=== PATIENT | female | born 1995 | race Caucasian/White ===

== ENCOUNTER 2020-03-04 22:39 | Emergency (ER) | payer OTHER ==
[~2020-03-04] VITALS: Ht 167.6 cm; Wt 85.9 kg
[2020-03-04 22:42] VITALS: BP 146/86
[2020-03-04 23:33] LABS: HEMATOCRIT 42.5 % (36.0-47.0); HEMOGLOBIN 13.8 g/dl (12.0-15.5); MEAN CORPUSCULAR HEMOGLOBIN 31.5 pg (27.0-33.0); MEAN CORPUSCULAR HGB CONC 32.5 g/dl (32.0-36.5); PLATELET COUNT, AUTOMATED 411 10^3/uL (150-450); RED BLOOD COUNT 4.38 10^6/uL (4.00-5.40)
[2020-03-05 00:10] LABS: BLOOD UREA NITROGEN 9 MG/DL (7-18); CALCIUM LEVEL 9.4 MG/DL (8.5-10.1); CARBON DIOXIDE LEVEL 28 MEQ/L (21-32); CHLORIDE LEVEL 106 MEQ/L (98-107); CREATININE FOR GFR 0.83 MG/DL (0.55-1.30); GLOMERULAR FILTRATION RATE > 60.0 (>60); GLUCOSE, FASTING 102 MG/DL (70-100); HCG, SERUM QUANTITATIVE < 1.0 MIU/ML; SODIUM LEVEL 141 MEQ/L (136-145)
--- NOTE | 2020-03-05 00:36 | REPVR ---
PROCEDURE INFORMATION: Exam: XR Chest, 2 Views Exam date and time: 03/04/2020 12:31 AM Age: 24 years old Clinical indication: Other: Chest pain TECHNIQUE: Imaging protocol: XR of the chest Views: 2 views. COMPARISON: No relevant prior studies available. FINDINGS: Lungs: Degree of inflation of the lungs is normal. No evidence of pulmonary edema. No focal airspace process. No concerning parenchymal lung mass. Pleural space: No pleural effusion or pneumothorax. Heart/Mediastinum: Cardiac silhouette appears normal. No mediastinal adenopathy or hilar mass. Bones/joints: Osseous structures show no acute or concerning abnormality. IMPRESSION: No active or focal cardiopulmonary process. Electronically signed by: Ramirez Zarate On 03/05/2020 00:36:16 AM
--- NOTE | 2020-03-05 08:03 | ECGEPIP ---
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
== END 2020-03-05 00:51 | disposition home or self-care (01) ==
LOC: M ED 22:39
DX: R07.89 Other chest pain (principal); R42 Dizziness and giddiness; E03.9 Hypothyroidism, unspecified

== ENCOUNTER 2020-05-26 16:34 | Emergency (ER) | payer OTHER ==
[~2020-05-26] VITALS: Ht 167.6 cm; Wt 79.9 kg
[2020-05-26 16:35] VITALS: BP 145/85
--- OUTSIDE RECORDS SUMMARY | 2020-05-26 16:42 | CCD | Continuity of Care Document ---
Author Author Marie ANGELES Organization Unknown Address [address] [place] [address] Phone [phone] Care Team Providers Care Quality Assurance Inspector Name Role Phone Lloyd Gamboa AUTM [phone] Problems Active Problems Provider Date Memory impairment Angéliac Hughes M.D. Onset: 04/11/2020 Concussion with no loss of consciousness Troy Gallegos Onset: 04/11/2020 Social History Type Date Description Comments Sex Unknown Tobacco Use Start: Unknown Patient has never smoked Allergies, Adverse Reactions, Alerts Description No Known Drug Allergies Medications Active Medications SIG Qnty Indications Ordering Provide r Date Synthroid 137mcg Tablets once a day Angélica Hughes M.D. Immunizations Description No Information Available Vital Signs Date Vital Result Comment 04/11/2020 9:24am Respiratory Rate 12 /min Height 66 inches 5'6" Weight 187.00 lb BMI (Body Mass Index) 30.2 kg/m2 [place] Body Weight 130 lb Results Description No Information Available Procedures Date Code Description Status 04/16/2020 66001 MRI Brain W/O Contrast Completed 04/16/2020 49416 MRI Brain W/O Contrast Completed Medical Devices Description No Information Available Encounters Type Date Location Provider Dx Diagnosis Office Visit 04/11/2020 8:30a Main office - [place] Angélica ochoa M.D. 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 04/16/2020 F07.81 Postconcussional syndrome MRI 04/11/2020 S06.0x0S Concussion without loss of consc iousness, sequela Angélica Hughes M.D. 04/11/2020 F07.81 Postconcussional syndrome Angélica Hughes M.D. 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 04/11/2020 R41.82 Altered mental status, unspecifi ed Angélica Hughes M.D. Plan of Treatment Future Appointment(s):* 07/11/2020 11:30 am - Angélica Hughes M.D. at [facility] * 06/01/2020 9:45 am - EEG at [facility] Functional Status Description No Information Available Mental Status Description No Information Available Referrals Refer to Dr Reason for Referral Status Appt Date Angélica Hughes M.D. Created [address] [place] [address] [phone]
--- OUTSIDE RECORDS SUMMARY | 2020-05-26 16:43 | CCD | Continuity of Care Document ---
Author Author Marie ROSALES M.D. Organization Unknown Address [address] [place] [address] Phone [phone] Care Team Providers Care Director Sterile Processing Name Role Phone Lloyd Gamboa AUTM [phone] Problems Active Problems Provider Date Memory impairment Angélica Rosales M.D. Onset: 04/11/2020 Concussion with no loss of consciousness Troy Gallegos Onset: 04/11/2020 Social History Type Date Description Comments Sex Unknown Tobacco Use Start: Unknown Patient has never smoked Allergies, Adverse Reactions, Alerts Description No Known Drug Allergies Medications Active Medications SIG Qnty Indications Ordering Provide r Date Synthroid 137mcg Tablets once a day Angélica Rosales M.D. Immunizations Description No Information Available Vital Signs Date Vital Result Comment 04/11/2020 9:24am Respiratory Rate 12 /min Height 66 inches 5'6" Weight 187.00 lb BMI (Body Mass Index) 30.2 kg/m2 [place] Body Weight 130 lb Results Description No Information Available Procedures Description No Information Available Medical Devices Description No Information Available Encounters Description No Information Available Assessments Date Code Description Provider 04/11/2020 S06.0x0S Concussion without loss of consc iousness, sequela Angélica Rosales M.D. 04/11/2020 F07.81 Postconcussional syndrome Angélica Rosales M.D. 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 04/11/2020 R41.82 Altered mental status, unspecifi ed Angélica Rosales M.D. Plan of Treatment Future Appointment(s):* 06/01/2020 9:45 am - EEG at [facility] Functional Status Description No Information Available Mental Status Description No Information Available Referrals Description No Information Available
--- OUTSIDE RECORDS SUMMARY | 2020-05-26 16:43 | CCD | Continuity of Care Document ---
Author Author Marie CHOU Organization Unknown Address [address] [place] [address] [place] [address] Phone [phone] Care Team Providers Care Lifter Driver Name Role Phone Benny Casillas MD AUTM Unavailable [facility] AUTM [phone] Problems Description No Information Available Social History Type Date Description Comments Sex Unknown ETOH Use Denies alcohol use Tobacco Use Start: Unknown Patient has never smoked Smoking Status Reviewed: 03/22/20 Patient has never smoked Allergies, Adverse Reactions, Alerts Description No Known Drug Allergies Medications Active Medications SIG Qnty Indications Ordering Provide r Date Synthroid 137mcg Tablets take one in in the morning daily Unknown Immunizations Description No Information Available Vital Signs Date Vital Result Comment 03/22/2020 5:03pm BP Systolic 116 mmHg BP Diastolic 72 mmHg Heart Rate 78 /min Respiratory Rate 16 /min Body Temperature 97.7 F Weight 190.00 lb Height 67 inches 5'7" BMI (Body Mass Index) 29.8 kg/m2 Pain Level 0 Results Description No Information Available Procedures Description No Information Available Medical Devices Description No Information Available Encounters Type Date Location Provider Dx Diagnosis Office Visit 03/22/2020 5:15p Main Office KAYLEIGH Castaneda S5 1.811A Laceration w/o foreign body of right forearm, init encntr Assessments Date Code Description Provider 03/22/2020 S51.811A Laceration without f oreign body of right forearm, initial encounter KAYLEIGH Castaneda Plan of Treatment 03/22/2020 - KAYLEIGH Castaneda* S51.811A Laceration without foreign body of right forearm, initial encounter* Comments:* sutures removed, no complications. 10 sutures removed. recommend using ointment for continued healing. pt understood plan. Functional Status Description No Information Available Mental Status Description No Information Available Referrals Refer to Reason for Referral Status Appt Date Leobardo LOGAN, Yovany Laird M.D. Created [address] [place] [address] [phone]
--- OUTSIDE RECORDS SUMMARY | 2020-05-26 16:43 | CCD | Continuity of Care Document ---
Author Author Marie ANGELES Organization Unknown Address [address] [place] [address] Phone [phone] Care Team Providers Care Snack Bar Attendant Name Role Phone Lloyd Gamboa AUTM [phone] Problems Active Problems Provider Date Memory impairment Angélica Hughes M.D. Onset: 04/11/2020 Concussion with no [...] lb BMI (Body Mass Index) 30.2 kg/m2 [place] Body Weight 130 lb Results Description No Information Available Procedures Date Code Description Status 04/16/2020 21362 MRI Brain W/O Contrast Completed Medical Devices Description No Information Available Encounters Type Date Location Provider Dx Diagnosis Office Visit 04/11/2020 8:30a Main office - [place] Angélica ochoa M.D. 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 04/11/2020 F07.81 Postconcussional syndrome Angélica Hughes M.D. 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 04/11/2020 R41.82 Altered mental status, unspecifi ed Angélica Hughes M.D. Plan of Treatment Future Appointment(s):* 07/11/2020 11:30 am - Angélica Hughes M.D. at Main office [facility] * 06/01/2020 9:45 am - EEG at [facility] Functional Status Description No Information Available Mental Status Description No Information Available Referrals Refer to Reason for Referral Status Appt Date Angélica Hughes M.D. Created [address] [place] [address] [phone]
--- OUTSIDE RECORDS SUMMARY | 2020-05-26 16:43 | CCD | Continuity of Care Document ---
Author Author Marie ROSALES M.D. Organization Unknown Address [address] [place] [address] Phone [phone] Care Team Providers Care Temp Recruiter Name Role Phone Lloyd Gamboa AUTM [phone] Problems Active Problems Provider Date Memory impairment [...] lb BMI (Body Mass Index) 30.2 kg/m2 [place] Body Weight 130 lb Results Description No Information Available Procedures Description No Information Available Medical Devices Description No Information Available Encounters Type Date Location Provider Dx Diagnosis Office Visit 04/11/2020 8:30a Main office - [place] Angélica ochoa M.D. 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 04/11/2020 F07.81 Postconcussional syndrome Angélica Rosales M.D. 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 04/11/2020 R41.82 Altered mental status, unspecifi ed Angélica Rosales M.D. Plan of Treatment Future Appointment(s):* 07/11/2020 11:30 am - Angélica Rosales M.D. at [facility] * 06/01/2020 9:45 am - EEG at [facility] Functional Status Description No Information Available Mental Status Description No Information Available Referrals Refer to Reason for Referral Status Appt Date Angélica Rosales M.D. Created [address] [place] [address] [phone]
--- OUTSIDE RECORDS SUMMARY | 2020-05-26 16:43 | CCD | Continuity of Care Document ---
Author Author Marie CHOU MS Organization Unknown Address [address] [place] [address] Phone [phone] Care Team Providers Care Store Stocker Name Role Phone Benny Casillas MD AUTM Unavailable [facility] AUTM [phone] Problems Description No Information Available Social History [...] Available Encounters Description No Information Available Assessments Description No Information Available Plan of Treatment No Information Available Functional Status Description No Information Available Mental Status Description No Information Available Referrals Refer to Reason for Referral Status Appt Date Yovany Booth JR., M.D. [facility] [place] [address] [phone]
--- OUTSIDE RECORDS SUMMARY | 2020-05-26 16:43 | CCD ---
Author Author [facility] Organization [facility] Address Unknown Phone Unavailable Care Team Providers Care Financial Counselor Name Role Phone Campanaro, Mare Bee PA Unavailable Unavailable Campanaro, Mare Bee PA Unavailable Unavailable Campanaro, Mare Bee PA Unavailable Unavailable Campanaro, Mare Bee PA Unavailable Unavailable Campanaro, Mare Bee PA Unavailable Unavailable Campanaro, Mare Bee PA Unavailable Unavailable Campanaro, Mare Bee PA Unavailable Unavailable Campanaro, Mare Bee PA Unavailable Unavailable Campanaro, Mare Bee PA Unavailable Unavailable Campanaro, Mare Bee PA Unavailable Unavailable Campanaro, Mare Bee PA Unavailable Unavailable Campanaro, Mare Bee PA Unavailable Unavailable Campanaro, Mare Bee PA Unavailable Unavailable Campanaro, Mare Bee PA Unavailable Unavailable Campanaro, Mare Bee PA Unavailable Unavailable Campanaro, Mare Bee PA Unavailable Unavailable Campanaro, Mare Bee PA Unavailable Unavailable Campanaro, Mare Bee PA Unavailable Unavailable TURRIN, TERRI Unavailable Unavailable TURRIN, TERRI Unavailable Unavailable TURRIN, TERRI Unavailable Unavailable TURRIN, TERRI Unavailable Unavailable TONTARSKI, G SHAE PA Unavailable Unavailable TONTARSKI, G SHAE PA Unavailable Unavailable TONTARSKI, G SHAE PA Unavailable Unavailable TONTARSKI, G SHAE PA Unavailable Unavailable TONTARSKI, G SHAE PA Unavailable Unavailable TONTARSKI, G SHAE PA Unavailable Unavailable TONTARSKI, G SHAE PA Unavailable Unavailable TONTARSKI, G SHAE PA Unavailable Unavailable TONTARSKI, G SHAE PA Unavailable Unavailable TONTARSANGELLA, G SHAE PA Unavailable Unavailable TONTARSKI, G SHAE PA Unavailable Unavailable TONTARSANGELLA, G SHAE PA Unavailable Unavailable TONTARSKI, G SHAE PA Unavailable Unavailable TONTARSANGELLA, G SHAE PA Unavailable Unavailable TONTARSANGELLA, G SHAE PA Unavailable Unavailable TONTARSANGELLA, G SHAE PA Unavailable Unavailable TONTARSANGELLA, G SHAE PA Unavailable Unavailable TONTARSANGELLA, G SHAE PA Unavailable Unavailable TONTARSANGELLA, G SHAE PA Unavailable Unavailable TONTARSANGELLA, G SHAE PA Unavailable Unavailable TONTARSANGELLA, G SHAE PA Unavailable Unavailable TONTARSANGELLA, G SHAE PA Unavailable Unavailable TONTARSANGELLA, G SHAE PA Unavailable Unavailable TONTARSKI, G SHAE PA Unavailable Unavailable TONTARSANGELLA, G SHAE PA Unavailable Unavailable TONTARSANGELLA, G SHAE PA Unavailable Unavailable TONTARSANGELLA, G SHAE PA Unavailable Unavailable TONTARSANGELLA, G SHAE PA Unavailable Unavailable TONTARSKI, G SHAE PA Unavailable Unavailable TONTARSANGELLA, G SHAE PA Unavailable Unavailable TONTARSANGELLA, G SHAE PA Unavailable Unavailable TONTARSANGELLA, G SHAE PA Unavailable Unavailable TONTARSANGELLA, G SHAE PA Unavailable Unavailable TONTARSANGELLA, G SHAE PA Unavailable Unavailable TONTARSKI, G SHAE PA Unavailable Unavailable TONTARSANGELLA, G SHAE PA Unavailable Unavailable TONTARSANGELLA, G SHAE PA Unavailable Unavailable TONTARSKI, G SHAE PA Unavailable Unavailable TONTARSKI, G SHAE PA Unavailable Unavailable TONTARSKI, G SHAE PA Unavailable Unavailable TONTARSKI, G SHAE PA Unavailable Unavailable TONTARSKI, G SHAE PA Unavailable Unavailable TONTARSKI, G SHAE PA Unavailable Unavailable TONTARSKI, G SHAE PA Unavailable Unavailable TONTARSKI, G SHAE PA Unavailable Unavailable TONTARSKI, G SHAE PA Unavailable Unavailable TONTARSKI, G SHAE PA Unavailable Unavailable Micheal MURCIA MD Unavailable Unavailable TWINMicheal CORONADO MD Unavailable Unavailable Micheal MURCIA MD Unavailable Unavailable TWINMicheal CORONADO MD Unavailable Unavailable Micheal MURCIA MD Unavailable Unavailable TWINMicheal CORONADO MD Unavailable Unavailable Micheal MURCIA MD Unavailable Unavailable Micheal MURCIA MD Unavailable Unavailable Micheal MURCIA MD Unavailable Unavailable Micheal MURCIA MD Unavailable Unavailable Micheal MURCIA MD Unavailable Unavailable Micheal MURCIA MD Unavailable Unavailable Micheal MURCIA MD Unavailable Unavailable Micheal MURCIA MD Unavailable Unavailable Micheal MURCIA MD Unavailable Unavailable Micheal MURCIA MD Unavailable Unavailable Micheal MURCIA MD Unavailable Unavailable Micheal MURCIA MD Unavailable Unavailable Micheal MURCIA MD Unavailable Unavailable Micheal MURCIA MD Unavailable Unavailable Micheal MURCIA MD Unavailable Unavailable Micheal MURCIA MD Unavailable Unavailable Micheal MURCIA MD Unavailable Unavailable Denisse Hughes MD Unavailable Unavailable Denisse Hughes MD Unavailable Unavailable Denisse Hughes MD Unavailable Unavailable Denisse Hughes MD Unavailable Unavailable Denisse Hughes MD Unavailable Unavailable Denisse Hughes MD Unavailable Unavailable Denisse Hughes MD Unavailable Unavailable Denisse Hughes MD Unavailable Unavailable Denisse Hughes MD Unavailable Unavailable Denisse Hughes MD Unavailable Unavailable Denisse Hughes MD Unavailable Unavailable Denisse Hughes MD Unavailable Unavailable Denisse Hughes MD Unavailable Unavailable Denisse Hughes MD Unavailable Unavailable Denisse Hughes MD Unavailable Unavailable Denisse Hughes MD Unavailable Unavailable Denisse Hughes MD Unavailable Unavailable Denisse Hughes MD Unavailable Unavailable Denisse Hughes MD Unavailable Unavailable Denisse Hughes MD Unavailable Unavailable Denisse Hughes MD Unavailable Unavailable Denisse Hughes MD Unavailable Unavailable Denisse Hughes MD Unavailable Unavailable Denisse Hughes MD Unavailable Unavailable Denisse Hugehs MD Unavailable Unavailable Denisse Hughes MD Unavailable Unavailable Denisse Hughes MD Unavailable Unavailable Denisse Hughes MD Unavailable Unavailable Denisse Hughes MD Unavailable Unavailable Denisse Hughes MD Unavailable Unavailable Denisse Hughes MD Unavailable Unavailable Denisse Hughes MD Unavailable Unavailable Denisse Hughes MD Unavailable Unavailable Denisse Hughes MD Unavailable Unavailable Denisse Hughes MD Unavailable Unavailable Denisse Hughes MD Unavailable Unavailable Denisse Hughes MD Unavailable Unavailable Denisse Hughes MD Unavailable Unavailable Denisse Hughes MD Unavailable Unavailable Denisse Hughes MD Unavailable Unavailable Denisse Hughes MD Unavailable Unavailable Denisse Hughes MD Unavailable Unavailable Denisse Hughes MD Unavailable Unavailable Denisse Hughes MD Unavailable Unavailable Denisse Hughes MD Unavailable Unavailable Denisse Hughes MD Unavailable Unavailable Denisse Hughes MD Unavailable Unavailable Denisse Hughes MD Unavailable Unavailable Denisse Hughes MD Unavailable Unavailable Denisse Hughes MD Unavailable Unavailable Denisse Hughes MD Unavailable Unavailable Denisse Hughes MD Unavailable Unavailable Denisse Hughes MD Unavailable Unavailable Denisse Hughes MD Unavailable Unavailable Denisse Hughes MD Unavailable Unavailable Denisse Hughes MD Unavailable Unavailable Denisse Hughes MD Unavailable Unavailable Denisse Hughes MD Unavailable Unavailable Denisse Hughes MD Unavailable Unavailable Denisse Hughes MD Unavailable Unavailable Denisse Hughes MD Unavailable Unavailable Saul, O Samah MD Unavailable Unavailable Saul, O Samah MD Unavailable Unavailable Saul, O Samah MD Unavailable Unavailable Saul, O Samah MD Unavailable Unavailable Saul, O Samah MD Unavailable Unavailable Saul, O Samah MD Unavailable Unavailable Saul, O Samah MD Unavailable Unavailable Saul, O Samah MD Unavailable Unavailable Saul, O Samah MD Unavailable Unavailable Saul, O Samah MD Unavailable Unavailable Saul, O Samah MD Unavailable Unavailable Saul, O Samah MD Unavailable Unavailable Saul, O Samah MD Unavailable Unavailable Saul, O Samah MD Unavailable Unavailable Re-disclosure Warning The records that you are about to access may contain information from federally-assisted alcohol or drug abuse programs. If such information is present, then the following federally mandated warning applies: This information has been disclosed to you from records protected by federal confidentiality rules (42 CFR part 2). The federal rules prohibit you from making any further disclosure of this information unless further disclosure is expressly permitted by the written consent of the person to whom it pertains or as otherwise permitted by 42 CFR part 2. A general authorization for the release of medical or other information is NOT sufficient for this purpose. The Federal rules restrict any use of the information to criminally investigate or prosecute any alcohol or drug abuse patient.The records that you are about to access may contain highly sensitive health information, the redisclosure of which is protected by Article 27-F of the [facility] Public Health law. If you continue you may have access to information: Regarding HIV / AIDS; Provided by facilities licensed or operated by the [facility] Office of Mental Health; or Provided by the [facility] Office for People With Developmental Disabilities. If such information is present, then the following [facility] mandated warning applies: This information has been disclosed to you from confidential records which are protected by state law. State law prohibits you from making any further disclosure of this information without the specific written consent of the person to whom it pertains, or as otherwise permitted by law. Any unauthorized further disclosure in violation of state law may result in a fine or senior care sentence or both. A general authorization for the release of medical or other information is NOT sufficient authorization for further disc losure. Family History Family Member Name Family Member Gender Family Member Status Date o f Status Description Data Source(s) Unknown Unknown Problem [facility] ([facility], ) Encounters Encounter Providers Location Date Indications Data Source(s ) Outpatient Attender: Angélica Hughes MD Main office - [facility] 04/11/2020 07:30:00 AM EST [facility] ([facility]) Outpatient Attender: Bee gomez 03/22/2020 04:15:00 PM EST [facility] ([facility]) Emergency Attender: TERRI GUADALUPEConsultant: SHAE VICTOR 03/16/2020 11:46:00 AM EST - 03/16/2020 04:14:00 PM EST [facility] Patient discharged. Emergency Attender: CLAIRE MURCIA MDConsultant: SHAE VICTOR 03/04/2020 04:05:00 AM EDT - 03/04/2020 05:11:00 AM EDT [facility] Patient discharged. Medications Medication Brand Name Start Date Product Form Dose Route Admi nistrative Instructions Pharmacy Instructions Status Indications Reaction Description Data Source(s) Sulfamethoxazole 800 MG / Trimethoprim 160 MG Oral Tab let 800-160 mg SULFAMETHOXAZOLE/TRIMETHOPRIM 03/16/2020 12:00:00 AM EST tablet 14 TAKE ONE TABLET BY MOUTH TWICE A DAY FOR 7 DAYS TAKE ONE TABLET BY MOUTH TWICE A DAY FOR 7 DAYS SOLD: 03/16/2020 Marty Rivera s Insurance Providers Payer name Policy type / Coverage type Policy ID Covered democrat ID Covered democrat's relationship to arriaga Policy Arriaga Plan Information [facility] [id number] SF2 [id number] [facility] - O/P [id number] 19 [id number] ACTIVE DUTY [id number] SP [id number] U [id number] Child [id number] [employer] (HMO) Family Dependent Health Net [employer] Standard Health Maintenance Organization (HMO) MEDICAID [id number] SP [id number] REGION 1 [id number] [facility] [id number] SF2 [id number] [facility] [id number] FA [id number] U [id number] Child [id number] [facility] O [id number] P [id number] Problems, Conditions, and Diagnoses Code Display Name Description Problem Type Effective Dates Data Source(s) 53649934 Concussion with no loss of consciousness Concussion with no loss of consciousness Problem 04/11/2020 12:00:00 AM EST [facility] ([facility], ) [id number] Memory impairment Memory impairment Problem 04/11 12:00:00 AM EST [facility] ([facility], ) [id number] Unspecified place in unspeci fied non-institutional (private) residence as the place of occurrence of the external cause Unspecified place in unspecified non-institutional (private) residence as the place of occurrence of the external cause Diagnosis 03/16/2020 11:46:00 AM [facility] [id number] Contact with other sharp obj ect(s), not elsewhere classified, initial encounter Contact with other sharp object(s), not elsewhere classified, initial encounter Diagnosis 03/16/2020 11:46:00 AM [facility] Z7982 FCI (current) use of aspirin oracle adf developer (cu rrent) use of aspirin Diagnosis 03/16/2020 11:46:00 AM [facility] Z23 Encounter for immunization Encounter for immunization Diagnosis 03/16/2020 11:46:00 AM [facility] N3001 Acute cystitis with hematuria Acute cystitis with tray turia Diagnosis 03/16/2020 11:46:00 AM [facility] [id number] Laceration without foreign body of right forearm, initial encounter Laceration without foreign body of right forearm, initial encounter Diagnosis 03/16/2020 11:46:00 AM [facility] [id number] Unspecified injury of right forearm, ini tial encounter Unspecified injury of right forearm, initial encounter Diagnosis 03/16/2020 11:46: 00 AM [facility] G52893 Nicotine dependence, unspecified, uncomp licated Nicotine dependence, unspecified, uncomplicated Diagnosis 03/04/2020 04:05:00 AM EDT [facility] F1290 Cannabis use, unspecified, uncomplicated Cannabis use, unspecified, uncomplicated Diagnosis 03/04/2020 04:05:00 AM EDT [facility] M940 Chondrocostal junction syndrome [Tietze] Chondrocostal junction syndrome [Tietze] Diagnosis 03/04/2020 04:05:00 AM EDT [facility] R0789 Other chest pain Other chest pain Diagnosis 03/04/2020 04 :05:00 AM EDT [facility] Surgeries/Procedures Procedure Description Date Indications Data Source(s) MRI BRAIN BRAIN STEM W/O CONTRAST MATERIAL 04/16/2020 12:00:00 AM EST [facility] ([facility], ) MRI BRAIN BRAIN STEM W/O CONTRAST MATERIAL 04/16/2020 12:00:00 AM EST [facility] ([facility], ) Results ID Date Data Source [id number] 03/24/2020 10:51:00 [place] [address] RESPIRATORY CARE REPORT ==== ---------NAME------- NUMBER SEX AGE ADMIT DISC. XRAY# F/C AYUSH CARDOSO [id number] F 24 03/16/20 03/16/20 [id number] SB4 E/R DATE OF : 1995 M/R# [id number] #: [id number] TR-03 LOCATION: [place] [address] COMP LETE:03/16/20 14:35 [facility] [address] PHYSICIAN: ANAYELI RICHARDSON CH Name Value Range Interpretation Code Description Data Haley rce(s) Supporting Document(s) ID Date Data Source [id number] 03/17/2020 09:36:00 AM [place] [id number] PHONE: [phone] FAX: [phone] Name .................. : CAR CARDOSO Acct Number.................. : [id number] ROOM. ................. : TR-03 MR Number ................... : [id number] Stay type ............. : E/R Discharge Date......... ... : 03/16/20 Admit Date ......... : 03/16/20 Admit Phys .................... : ANAYELI PEREYRA Date of ....... : 1995 Family Phys ................... : MALCOLM Phone .................. : [phone] Age ................................ : 24 Film# .................. .:[id number] Sex ................................. : F Unsigned transcriptions are preliminary reports and do not represent a medical or legal document [facility] [place] [id number] COMPLETE:03/16/20 19:02 [facility] [address] Reason(s): Trauma/Injury RIGHT FOREARM X-RAY: INDICATION: Trauma. FINDINGS/IMPRESSION: There is no fracture or dislocation. No significant degenerative changes. Small punctate densities are noted in the lateral soft tissues of the forearm on the AP view. I do not see these on the lateral view and they may be obscured by the osseous structures versus dust particles on the radiographic cassette used for the AP view. Electronically Reviewed and Signed By Toni Ortiz M.D. , 03/17/20 09:36, [facility] Transcribe Initials: SUSIE , Transcribe Date: 03/16/20 22:17, Dictation Date: Copy for: DYLAN HALE via fax Copy for: EMERGENCY DEPT via modem Copy for: 710 MED REC DISCHARGED Page 1 of 1 Name Value Range Interpretation Code Description Data Haley rce(s) Supporting Document(s) ID Date Data Source [id number] 03/17/2020 09:36:00 AM EST [facility] [address] [place] [address] PHONE: [phone] FAX: [phone] Name .................. : CAR CARDOSO Acct Number.................. : [id number] ROOM. ................. : TR-03 Number ................... : [id number] Stay type ............. : E/R Discharge Date......... ... : 03/16/20 Admit Date ......... : 03/16/20 Admit Phys .................... : ANAYELI PEREYRA Date of ....... : 1995 Family Phys ................... : [employer] Phone .................. : [phone] Age ................................ : 24 Film# .................. .:[id number] Sex ................................. : F Unsigned transcriptions are preliminary reports and do not represent a medical or legal document CHEST PORTABLE [id number] COMPLETE:03/16/20 19:02 [facility] [address] Reason(s): psych; tachy, PORTABLE CHEST X-RAY: INDICATION: Patient jumped out of a window. Patient is tachycardic. FINDINGS: The cardiac and mediastinal silhouettes appear normal and the lungs are clear. The bones and soft tissues are normal. The upper abdomen is unremarkable. IMPRESSION: No acute disease identifiable. Electronically Reviewed and Signed By Toni Ortiz M.D. , 03/17/20 09:36, [facility] Transcribe Initials: SUSIE , Transcribe Date: 03/16/20 22:14, Dictation Date: Copy for: DYLAN HALE via fax Copy for: EMERGENCY DEPT via modem Copy for: 710 MED REC DISCHARGED Page 1 of 1 Name Value Range Interpretation Code Description Data Haley rce(s) Supporting Document(s) ID Date Data Source [id number] 03/16/2020 11:46:00 AM EST [facility] 1 OrderSheet [facility] Emergency Department [address] [place] [address] Phone #: ext- [phone] 03/16/2020 11:39 Patient: WALKER YOON Sex: F : 1995 Age: 24yWEIGHT:84.0 kg (M) HEIGHT:68 inches (S) BMI:28.2ALLERGIES: Penicillins, Tobacco, VodkaCHIEF COMPLAINT: behav changeDIAGNOSIS: Problem, Urinary tract infectious disease, Laceration - InjuryLAB ORDERSOrder Description Priority Entered Acknowledged InitialedCBC w Diff STAT 12:30 03/16/2020 12:35 Andrey Franco R.N., P.A.-C;CMP STAT 12:30 03/16/2020 12:35 Andrey Franco R.N., P.A.-C;Lipase STAT 12:30 03/16/2020 12:35 Andrey Franco R.N. P.A.-C;PT/PTT STAT 12:30 03/16/2020 12:35 Andrey Franco R.N. P.A.-C;Troponin-T STAT 12:30 03/16/2020 12:35 Andrey Franco R.N. P.A.-C;TSH STAT 12:30 03/16/2020 12:35 Andrey Franco R.N. P.A.-C;Urinalysis (Clean STAT 12:30 03/16/2020 13:30 Salvador,Catch) Andrey Zepeda R.N. P.A.-C;Urine Drug Screen STAT 12:30 03/16/2020 13:30 Andrey Franco R.N. P.A.-C;Salicylate Level STAT 12:30 03/16/2020 12:35 Andrey Franco R.N. P.A.-C;CBC wo Diff STAT 12:30 03/16/2020 12:35 Andrey FrancoN. P.A.-C;Acetaminophen STAT 12:30 03/16/2020 12:35 Salvador, Elo OrderSheet [facility] Emergency Department [address] [place] [address] Phone #: ext- [phone] 03/16/2020 11:39 Patient: WALKER YOON A cct#: [id number] Sex: F : 1995 Age: 24yLevel Andrey Zepeda R.N. P.A.-C;ETOH STAT 12:30 03/16/2020 12:35 Andrey Franco R.N. P.A.-C;Drug Screen-Urine STAT 12:30 03/16/2020 13:30 Andrey Franco R.N. P.A.-C;HCG Serum Qual STAT 12:30 03/16/2020 12:34 Andrey Franco R.N. P.A.-C;Lactic Acid STAT 12:30 03/16/2020 12:34 Andrey Franco R.N. P.A.-C;CPK STAT 12:30 03/16/2020 12:35 Andrey Franco R.N. P.A.- C;Culture, Urine STAT 15:48 03/16/2020 15:49 Salvador,(Urine, Clean Andrey Zepeda R.N.Catch) P.A.-C;DIAGNOSTIC STUDY ORDERSOrder Description Priority Entered Acknowledged InitialedChest Portable 1 STAT 12:30 03/16/2020 13:30 Salvador,View Andrey Zepeda R.N.(Oxygen?(No)) P.A.-C; Reason for Study: psych; tachy,Forearm Complete STAT 12:30 03/16/2020 13:30 Salvador,Right Andrey Zepeda R.N.(Oxygen?(No)) P.A.-C; Reason for Study: Trauma/InjuryMEDICATION/IV/DRIP/FLUID ORDERSOrder Description Priority Entered Acknowledged InitialedIV NS : Bolus 500 13:37 03/16/2020 13:43 SalvadormL, then 75 mL/hr Andrey Zepeda R.N. P.A.-C;Mhmittu-Focme-Gxetr 15:24 03/16/2020 15:32 Salvador,Pertussis IM 0.5 mL Andrey Zepeda R.N. P.A.- C;GENERAL ORDERSOrder Description Priority Entered Acknowledged Initialed 3 OrderSheet [facility] Emergency Department [address] [place] [address] Phone #: ext- [phone] 03/16/2020 11:39 Patient: WALKER YOON Sex: F : 1995 Age: 24yBlood Pressure 12:30 03/16/2020 12:32 Franco,Monitor Andrey Zepeda R.N. P.A.-C;Tire Beader Maker 12:30 03/16/2020 12:32 Salvador,(continuous) Chr istopher Dylan Zepeda R.N. P.A.-C;EKG 12:30 03/16/2020 12:32 Andrey Franco R.N. P.A.-C;NPO 12:30 03/16/2020 12:32 Andrey Franco R.N. P.A.-C;Obtain Old EKG 12:30 03/16/2020 12:32 Andrey Franco R.N. P.A.-C;Obtain Old Records 12:30 03/16/2020 12:32 Andrey FrancoN. P.A.-C;Pulse oximeter 12:30 03/16/2020 12:32 Salvador,(Continuous) Andrey Zepeda R.N. P.A.-C;Saline Lock 12:30 03/16/2020 12:32 Andrey FrancoN. P.A.-C;Vitals 12:30 03/16/2020 12:32 Andrey FrancoN. P.A.-C;Suicide 12:30 03/16/2020 12:32 Salvador,Precautions Andrey MortonN. P.A.-C;One on One 12:30 03/16/2020 12:32 Salvador,supervision Andrey MortonN. P.A.- C;Irrigate Wounds 12:30 03/16/2020 12:32 Salvador,(NS) (Blue Pads) Andrey Zepeda R.N. P.A.- C;[Electronically signed by Lilo Salgado R.N. (19:26 03/16/2020)][Elect ronically signed by Andrey Richardson P.A.-C (20:58 03/16/2020)][Electronically locked by Lilo Salgado R.N. (:03/16/2020)] Name Value Range Interpretation Code Description Data Haley rce(s) Supporting Document(s) ID Date Data Source [id number] 03/16/2020 11:46:00 AM [facility] 1 Medication Reconciliation Report [facility] Emergency Department [address] [place] [address] Phone #: ext- [phone] 03/16/2020 11:39 Patient: WALKER YOON Sex: F : 1995 Age: 24yWeight: 84.0 kgHeight/Length: 68 in.BMI: 28.2ALLERGIES: Penicillins, Tobacco, VodkaThe patient's Home Medications are listed below:CONTINUE TAKING THE FOLLOWING MEDICATIONS: Escitalopram Oxalate Oral (10 mg) 1 tablet, daily Synthroid Oral (137 mcg), dailyThe source(s) of the original Home Medication information:Not obtained.The following Medications were given to the patient in the Emergency Department:IV NS IV Fluids bolus 500 mL over 1 hour(s), then 75 mL/hr, administered: 03/16/2020 1:43:00 SHHUSHEAL-KWINE-BCVZP PERTUSSIS [IM] IM 0.5 mL, administered: 03/16/2020 3:32:00 PMThe following Medications were prescribed to the patient:Bactrim DS 800 mg- 160 mg tablet Take 1 tablet twice a day for 7 days -- Dispense 14 tablet. Refills: 0.Substitution permitted.Pharmacy - [id number] - [address], [place] [phone]. . -- Andrey Richardson P.A.-C Name Value Range Interpretation Code Description Data Haley rce(s) Supporting Document(s) ID Date Data Source [id number] 03/16/2020 11:46:00 AM [facility] 1 Medication Administration Record [facility] Emergency Department [address] [place] [address] Phone #: ext- [phone] 03/16/2020 11:39 Patient: WALKER YOON Sex: F : 1995 Age: 24yWeight: 84.0 kgHeight/Length: 68 inBMI: 28.2ALLERGIES: Penicillins, Tobacco, Vodka Date/Time Medication Administered Medication OrderedStart IV NS IV NS : Bolus 500 mL, then 7513:43 03/16/2020 Dose: IV Fluids mL/hrKatelyn Franco, R.N. Rate: 75 mL/hr---- Bolus: 500 mL over 1 hour(s)Stop Dispensed: 1000 mL bag16:08 03/16/2020 Site: #1 left Lilo Dove R.N.Given [id number]-SEDYC PERTUSSIS Kpzrjhu-Wdmiu-Bvotp Pertussis IM15:32 03/16/2020 [IM] 0.5 mLKatelyn Franco, R.NRylee Dose: 0.5 mL IM Name Value Range Interpretation Code Description Data Haley rce(s) Supporting Document(s) ID Date Data Source [id number] 03/16/2020 11:46:00 AM EST [facility] 1 General Instructions [facility] [facility] [address] [place] [address] Phone #: ext [phone] 03/16/2020 11:39 Patient: WALKER YOON Sex: F : 1995 Age: 24y Multiple superficial lacerations to the right forearm. No foreign body present. Acute urinary tract infection with cystitis and hematuria. Abnormal tests; (TSH was a little low. May need to adjust medicaiton.).INSTRUCTIONS Protect wound and keep wound area clean. Change dressing daily. Keep wounds dry. Apply bacitracin twice daily. Sutures/paul should be removed in seven days. No strenuous activity for one weeks. No dietary restrictions. Do not smoke. (Recommend to utilize OTC Motrin and Tylenol to control inflammation and pain management. Recommend to follow the instructions on the bottle and not to exceed. Recommend to utilize OTC antibiotic ointment to help control possible skin infection and help promote wound healing and care.). Warnings: Further evaluation is necessary. GENERAL WARNINGS: Return or contact your physician immediately if your condition worsens or changes unexpectedly, if not improving as expected, or if other problems arise. Your Current Medications: Your current home medications have been reviewed. CONTINUE TAKING THE FOLLOWING MEDICATIONS: Escitalopram Oxalate Oral : Tablet 10 mg, 1 tablet daily. Synthroid Oral : Tablet 137 mcg, daily. Prescription Medications: Bactrim DS 800 mg-160 mg tablet Take 1 tablet twice a day for 7 days -- Dispense 14 tablet. Refills: 0. Substitution permitted. Pharmacy - [id number] - [address] [place] [address] [phone]. . Follow- up: Return to the emergency department as needed. Follow up with your healthcare provider in about two days if not better. Call for an appointment. Understanding of the discharge instructions verbalized by patient and parent. ADDITIONAL INFORMATION 2 General Instructions [facility] Emergency Department [address] [place] [address] Phone #: [phone]- [phone] 03/16/2020 11:39 Patient: WALKER YOON Sex: F : 1995 Age: 24yL aceration: All ClosuresA laceration is a cut through the skin. This will usually require stitches (sutures) or paul if it is deep.Minor cuts may be treated with a surgical tape closure or skin glue.Home care Your healthcare provider may prescribe an antibiotic. This is to help prevent infection. Follow all instructions for taking this medicine. Take the medicine every day until it is gone or you are told to stop. You should not have any left over. The healthcare provider may prescribe medicines for pain. If no pain medicines were prescribed, you can use zvfd-hgd-iqfniuv pain medicines. Follow instructions for taking any pain medicines. (Note: If you have chronic liver or kidney disease, or ever had a stomach ulcer or gastrointestinal bleeding, talk with your doctor before using these medicines.) Follow the healthcare provider's instructions on how to care for the cut. Keep the wound clean and dry. Do not get the wound wet until you are told it is OK to do so. If the area gets wet, gently pat it dry with a clean cloth. Replace the wet bandage with a dry one. If a bandage was applied and it becomes wet or dirty, replace it. Otherwise, leave it in place for the first 24 hours. Caring for sutures or paul: Once you no longer need to keep them dry, clean the wound 3 General Instructions [facility] Emergency Department [address] [place] [address] Phone #: [phone] 03/16/2020 11:39 Patient: WALKER YOON Sex: F : 1995 Age: 24y daily. First, remove the bandage. Then wash the area gently with soap and warm water, or as directed by the healthcare provider. Use a wet cotton swab to loosen and remove any blood or crust that forms. After cleaning, apply a thin layer of antibiotic ointment if advised. Then put on a new bandage unless you are told not to. Caring for skin glue: Don't put apply liquid, ointment, or cream on the wound while the glue is in place. Avoid activities that cause heavy sweating. Protect the wound from sunlight. Do not scratch, rub, or pick at the adhesive film. Do not place tape directly over the film. The glue should peel off within 5 to 10 days. Caring for surgical tape: Keep the area dry. If it gets wet, blot it dry with a clean towel. Surgical tape usually falls off within 7 to 10 days. If it has not fallen off after 10 days, you can take it off yourself. Put mineral oil or petroleum jelly on a cotton ball and gently rub the tape until it is removed. Once you can get the wound wet, you may shower as usual but do not soak the wound in water (no tub baths or swimming) Even with proper hodan atment, a wound infection may sometimes occur. Check the wound daily for signs of infection listed below.Scalp woundsDuring the first 2 days, you may carefully rinse your hair in the shower to remove blood, glass or dirtparticles. After two days, you may shower and shampoo your hair normally. Do not soak your scalp inthe tub or go swimming until the stitches or paul have been removed. Talk with your healthcareprovider before applying any antibiotic ointment to the wound.Mouth woundsEat soft foods to reduce pain. If the cut is inside of your mouth, clean by rinsing after each meal andat bedtime with a mixture of equal parts water and hydrogen peroxide (do not swallow!). Or, you canuse a cotton swab to directly apply hydrogen peroxide onto the cut. You may also be prescribed achlorhexidine solution to rise with. Mouth wounds can be painful when eating. You may use fpojon-hcd-viktros local numbing solution for pain relief. If this is not available, you may use anynumbing solution intended for teething babies. You may apply this directly to the sores with acotton-tip swab or with your finger.Follow-up careFollow up with your healthcare provider as advised. Ask your healthcare provider how long suturesshould be left in place. Be sure to return for suture removal as directed. If dissolving stitches wereused in the mouth, these should fall out or dissolve without the need for removal. If tape closureswere used, remove them yourself when your provider recommends if they have not fallen off on their 4 General Instructions [facility] Emergency Department [address] [place] [address] Phone #: [phone]- [phone] 03/16/2020 11:39 [id number] Sex: F : 1995 Age: 24yown. If skin glue was used, the film will wear off by itself. Generally, you should keep healing woundsout of direct sunlight for the first couple of months to try to lessen scarring.When to seek medical adviceCall your healthcare provider right away if any of these occur: Signs of infection, including increasing pain in the wound, increasing wound redness or swelling, or pus or bad odor coming from the wound Fever of 100.4F (38.C) or higher, or as directed by your healthcare provider Stitches or paul come apart or fall out or surgical tape falls off before 7 days Wound edges reopen Wound changes colors Numbness around the wound after any numbing medicine should have worn off Decreased movement around the injured areaCall 911Call 911 if you can't control the wound bleeding with direct pressure. [phone] [employer]. [address] [place] [address]. All rights reserved. This information is not intended as asubstitute for professional medical care. Always follow your healthcare professional's instructions.Laceration: How to Minimize ScarringA laceration is a cut through one or more layers of the skin. Cuts heal as the edges of the cut growtogether and heal. After the cut heals, the skin may not look exactly the same. The thor left behind iscalled a scar. Scars are a natural part of the healing process. They are hard to avoid. How much youmay scar depends on the depth of the cut, its location on your body, your age, and how your skinheals. Some people tend to heal with more scarring than others. Most scars fade and become lessnoticeable over time. You can take steps to help this process along.NOTE: Please inform the staff of your last tetanus shot and if your wound was caused by a fanny ordirty object.What you can doThe tips below can help reduce scarring as your wound heals. Keep the wound clean. Unless you are told to keep the area dry, gently wash the area with 5 General Instructions [facility] Emergency Department [address] [place] [address] Phone #: [phone]- [phone] 03/16/2020 11:39 Patient: WALKER YOON Sex: F : 1995 Age: 24y mild soap and water. You don't need to use antibacterial soap. Keep the wound moist. Apply petroleum jelly to the wound to keep it moist and prevent a scab from forming. Scabs lengthen the time it takes a wound to heal. Cover the wound. Use a non-adhesive bandage or gauze pad with paper tape. Change the bandage daily or if it gets wet or dirty. Try hydrating or silicone gel sheets. These dressings keep the wound moist and may help it heal faster with less scarring. They may be useful for larger wounds, scrapes, sores, hooper, or wounds with persistent redness. Ask your healthcare provider whether you should use this product on your wound. If you have stitches (sutures), follow your healthcare provider's instructions. Care for the wound as instructed. Also, return to have stitches removed on time. If you wait, scarring might be worse. Use sunscreen. Once the wound heals, apply sunscreen to the area daily. Sun may cause the scar to be more visible and discolored. Once the wound heals, there is some evidence that miyn-iph-kujgcxd scar creams can reduce the appearance of a scar.Follow upMake a follow-up appointment as directed by our staff. If you are advised to see a specialist or youhave concerns about scarring, please contact a driver guard.When to seek medical adviceWhen to seek medical advice Call your health care provider right away if any of these occur: Shaking chills or fever above 100.4F (38C) Bleeding that soaks the dressing [place] fluid weeping from the wound Increased drainage from the wound or drainage that is yellow, yellow-green, or has a foul odor Increased swelling, pain, or redness in the skin around the wound A change in the color or size of the wound Increased fatigue 6 General Instructions [facility] Emergency Department [address] [place] [address] Phone #: [phone]- [phone] 03/16/2020 11:39 Patient: WALKER YOON Sex: F : 1995 Age: 24y Loss of appetite Sutures pulling away from the wound or pulling apart [phone] [employer]. [address] [place] [address]. All rights reserved. This information is not intended as asubstitute for professional medical care. Always follow your healthcare professional's instructions.Bladder Infection, Female (Adult)Urine is normally doesn't have any bacteria in it. But bacteria can get into the urinary tract from theskin around the rectum. Or they can travel in the blood from elsewhere in the body. Once they are inyour urinary tract, they can cause infection in the urethra (urethritis), the bladder (cystitis), or thekidneys (pyelonephritis).The most common place for an infection is in the bladder. This is called a bladder infection. This isone of the most common infections in women. Most bladder infections are easily treated. They arenot serious unless the infection spreads to the kidney.The phrases "bladder infection," "UTI," and "cystitis" are often used to describe the same thing. Butthey are not always the same. Cystitis is an inflammation of the bladder. The most common cause ofcystitis is an infection.SymptomsThe infection causes inflammation in the urethra and bladder. This causes many of the symptoms.The most common symptoms of a bladder infection are: 7 General Instructions [facility] Emergency Department [address] [place] [address] Phone #: [phone]- [phone] 03/16/2020 11:39 Patient: WALKER YOON Sex: F : 1995 Age: 24y Pain or burning when urinating Having to urinate more often than usual Urgent need to urinate Only a small amount of urine comes out Blood in urine Abdominal discomfort. This is usually in the lower abdomen above the pubic bone. Cloudy urine Strong- or bad-smelling urine Unable to urinate (urinary retention) Unable to hold urine in (urinary incontinence) Fever Loss of appetite Confusion (in older adults)CausesBladder infections are not contagious. You can't get one from someone else, from a toilet seat, orfrom sharing a bath.The most common cause of bladder infections is bacteria from the bowels. The bacteria get onto theskin around the opening of the urethra. From there, they can get into the urine and travel up to thebladder, causing inflammation and infection. This usually happens because of: Wiping improperly after urinating. Always wipe from front to back. Bowel incontinence Procedures such as having a catheter inserted Older age Not emptying your bladder. This can allow bacteria a chance to grow in your urine. Dehydration Constipation 8 General Instructions [facility] Emergency Department [address] [place] [address] Phone #: [phone]- [phone] 03/16/2020 11:39 Patient: WALKER YOON Sex: F : 1995 Age: 24y Sex Use of a diaphragm for controlTreatmentBladder infections are diagnosed by a urine test. They are treated with antibiotics and usually clear upquickly without complications. Treatment helps prevent a more serious kidney infection.MedicinesMedicines can help in the treatment of a bladder infection: Take antibiotics until they are used up, even if you feel better. It is important to finish them to make sure the infection has cleared. You can use acetaminophen or ibuprofen for pain, fever, or discomfort, unless another medicine was prescribed. If you have chronic liver or kidney disease, talk with your healthcare provider before using these medicines. Also talk with your provider if you've ever had a stomach ulcer or gastrointestinal bleeding, or are taking blood-thinner medicines. If you are given phenazopydridine to reduce burning with urination, it will cause your urine to become a bright orange color. This can stain clothing.Care and preventionT hese self-care steps can help prevent future infections: Drink plenty of fluids to prevent dehydration and flush out your bladder. Do this unless you must restrict fluids for other health reasons, or your doctor told you not to. Proper cleaning after going to the bathroom is important. Wipe from front to back after using the toilet to prevent the spread of bacteria. Urinate more often. Don't try to hold urine in for a long time. Wear loose-fitting clothes and cotton underwear. Avoid tight-fitting pants. Improve your diet and prevent constipation. Eat more fresh fruit and vegetables, and fiber, and less junk and fatty foods. Avoid sex until your symptoms are gone. Avoid caffeine, alcohol, and spicy foods. These can irritate your bladder. Urinate right after intercourse to flush out your bladder. If you use control pills and have frequent bladder infections, discuss it with your doctor. 9 General Instructions [facility] Emergency Department [address] [place] [address] Phone #: [phone]- [phone] 03/16/2020 11:39 Patient: WALKER YOON Sex: F : 1995 Age: 24yFollow-up careCall your healthcare provider if all symptoms are not gone after 3 days of treatment. This is especiallyimportant if you have repeat infections.If a culture was done, you will be told if your treatment needs to be changed. If directed, you cancall to find out the results.If X-rays were done, you will be told if the results will affect your treatment.Call [phone] if any of the following occur: Trouble breathing Hard to wake up or confusion Fainting or loss of consciousness Rapid heart rateWhen to seek medical adviceCall your healthcare provider right away if any of these occur: Fever of 100.4F (38.0C) or higher, or as directed by your healthcare provider Symptoms are not better by the third day of treatment Back or belly (abdominal) pa in that gets worse Repeated vomiting, or unable to keep medicine down Weakness or dizziness Vaginal discharge Pain, redness, or swelling in the outer vaginal area (labia) [phone] [employer]. [address] [place] [address]. All rights reserved. This information is not intended as asubstitute for professional medical care. Always follow your healthcare professional's instructions.Bandage ChangeIf the bandage becomes wet or dirty, replace it. Otherwise, leave it in place for the first 24 hours.Then once a day: Remove the bandage and wash the area with soap and water. Use a wet cotton swab to 10 General Instructions [facility] Emergency Department [address] [place] [address] Phone #: [phone]- [phone] 03/16/2020 11:39 Patient: WALKER YOON Sex: F : 1995 Age: 24y loosen and remove any blood or crust that forms on the wound. After cleaning, apply a thin layer of antibiotic ointment or cream. Put the bandage back on.You can shower as usual after the first 24 hours. If the bandage is on an arm or leg, cover it with aplastic bag rubber-banded at both ends before showering. Take care that the rubber bands are nottoo tight, cutting off circulation to the affected area.Don't take a tub bath or go swimming until the bandage is removed and the wound healed. This willtake at least 7 days.When to seek medical adviceCall your healthcare provider right away if any of these occur with your wound: Fever Redness, warmth, or swelling Pain in the wound gets worse Pus drains when you remove the bandage Red streaks surround the wound area [phone] [employer]. [address] [place] [address], [place] [address]. All rights reserved. This information is not intended as asubstitute for professional medical care. Always follow your healthcare professional's instructions.Laceration: All ClosuresA laceration is a cut through the skin. This will usually require stitches (sutures) or paul if it is deep.Minor cuts may be treated with a surgical tape closure or skin glue. 11 General Instructions [facility] Emergency Department [address] [place] [address] Phone #: ext- [phone] 03/16/2020 11:39 Patient: WALKER YONO Sex: F : 1995 Age: 24yHome care Your healthcare provider may prescribe an antibiotic. This is to help prevent infection. Follow all instructions for taking this medicine. Take the medicine every day until it is gone or you are told to stop. You should not have any left over. The healthcare provider may prescribe medicines for pain. If no pain medicines were prescribed, you can use xkvq-mux-xkeekgs pain medicines. Follow instructions for taking any pain medicines. (Note: If you have chronic liver or kidney disease, or ever had a stomach ulcer or gastrointestinal bleeding, talk with your doctor before using these medicines.) Follow the healthcare provider's instructions on how to care for the cut. Keep the wound clean and dry. Do not get the wound wet until you are told it is OK to do so. If the area gets wet, gently pat it dry with a clean cloth. Replace the wet bandage with a dry one. If a bandage was applied and it becomes wet or dirty, replace it. Otherwise, leave it in place for the first 24 hours. Caring for sutures or paul: Once you no longer need to keep them dry, clean the wound daily. First, remove the bandage. Then wash the area gently with soap and warm water, or as directed by the healthcare provider. Use a wet cotton swab to loosen and remove any blood or crust that forms. After cleaning, apply a thin layer of antibiotic ointment if advised. Then put on a new bandage unless you are told not to. Caring for skin glue: Don't put apply liquid, ointment, or cream on the wound while the glue is 12 General Instructions [facility] Emergency Department [address] [place] [address] Phone #: [phone] 03/16/2020 11:39 Patient: WALKER YOON Sex: F : 1995 Age: [address] Avoid activities that cause heavy sweating. Protect the wound from sunlight. Do not scratch, rub, or pick at the adhesive film. Do not place tape directly over the film. The glue should peel off within 5 to 10 days. Caring for surgical tape: Keep the area dry. If it gets wet, blot it dry with a clean towel. Surgical tape usually falls off within 7 to 10 days. If it has not fallen off after 10 days, you can take it off yourself. Put mineral oil or petroleum jelly on a cotton ball and gently rub the tape until it is removed. Once you can get the wound wet, you may shower as usual but do not soak the wound in water (no tub baths or swimming) Even with proper treatment, a wound infection may sometimes occur. Check the wound daily for signs of infection listed below.Scalp woundsDuring the first 2 days, you may carefully rinse your hair in the shower to remove blood, glass or dirtparticles. After two days, you may shower and shampoo your hair normally. Do not soak your scalp inthe tub or go swimming until the stitches or paul have been removed. Talk with your healthcareprovider before applying any antibiotic ointment to the wound.Mouth woundsEat soft foods to reduce pain. If the cut is inside of your mouth, clean by rinsing after each meal andat bedtime with a mixture of equal parts water and hydrogen peroxide (do not swallow!). Or, you canuse a cotton swab to directly apply hydrogen peroxide onto the cut. You may also be prescribed achlorhexidine solution to rise with. Mouth wounds can be painful when eating. You may use xmvmoz-pke-zyeffag local numbing solution for pain relief. If this is not available, you may use anynumbing solution intended for teething babies. You may apply this directly to the sores with acotton-tip swab or with your finger.Follow-up careFollow up with your healthcare provider as advised. Ask your healthcare provider how long suturesshould be left in place. Be sure to return for suture removal as directed. If dissolving stitches wereused in the mouth, these should fall out or dissolve without the need for removal. If tape closureswere used, remove them yourself when your provider recommends if they have not fallen off on theirown. If skin glue was used, the film will wear off by itself. Generally, you should keep healing woundsout of direct sunlight for the first couple of months to try to lessen scarring.When to seek medical adviceCall your healthcare provider right away if any of these occur: 13 General Instructions [facility] Emergency Department [address] [place] [address] Phone #: [phone] 03/16/2020 11:39 Patient: WALKER YOON Sex: F : 1995 Age: 24y Signs of infection, including increasing pain in the wound, increasing wound redness or swelling, or pus or bad odor coming from the wound Fever of 100.4F (38.C) or higher, or as directed by your healthcare provider Stitches or paul come apart or fall out or surgical tape falls off before 7 days Wound edges reopen Wound changes colors Numbness around the wound after any numbing medicine should have worn off Decreased movement around the injured areaCall 911Call 911 if you can't control the wound bleeding with direct pressure. 1999- 2017 [employer]. [address] [place] [address], [place] [address]. All rights reserved. This information is not intended as asubstitute for professional medical care. Always follow your healthcare professional's instructions.Extremity Laceration: Stitches, [place], or TapeA laceration is a cut through the skin. If it is deep, it may require stitches or paul to close so it canheal. Minor cuts may be treated with surgical tape closures, or skin glue.X-rays may be done if something may have entered the skin through the cut. You may also need atetanus shot if you are not up to date on this vaccine.Home care Follow the healthcare provider's instructions on how to care for the cut. Wash your hands with soap and warm water before and after caring for your wound. This is to help prevent infection. Keep the wound clean and dry. If a bandage was applied and it becomes wet or dirty, replace it. Otherwise, leave it in place for the first 24 hours, then change it once a day or as directed. If stitches or paul were used, clean the wound daily: o After removing the bandage, wash the area with soap and water. Use a wet cotton swab to loosen and remove any blood or crust that forms. o After cleaning, keep the wound clean and dry. Talk with your healthcare provider before putting any antibiotic ointment on the wound. Reapply the bandage. 14 General Instructions [facility] Emergency Department [address] [place] [address] Phone #: ext- [phone] 03/16/2020 11:39 Patient: WALKER OYON Sex: F : 1995 Age: 24y You may remove the bandage to shower as usual after the first 24 hours, but don't soak the area in water (no swimming) until the stitches or paul are removed. If surgical tape closures were used, keep the area clean and dry. If it becomes wet, blot it dry with a towel. Let the surgical tape fall off on its own. The healthcare provider may prescribe an antibiotic cream or ointment to prevent infection. He or she may also prescribe an antibiotic pill. Don't stop taking this medicine until you have finished it all or the provider tells you to stop. The provider may also prescribe medicine for pain. Follow the instructions for taking these medicines. Don't do activities that may reopen your wound.Follow-up careFollow up with your healthcare provider, or as advised. Most skin wounds heal within 10 days. But aninfection may sometimes occur even with proper treatment. Check the wound daily for the signs ofinfection listed below. Stitches and paul should be removed within 7 to14 days.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 discomfort.).Warnings: Further evaluation is necessary.GENERAL WARNINGS: Return or contact your physician immediately if your condition worsens orchanges unexpectedly, if not improving as expected, or if other problems arise.Your Current Medications: Your current home medications have been reviewed.CONTINUE TAKING THE FOLLOWING MEDICATIONS:Synthroid Oral : Tablet 137 mcg, daily.Understanding of the discharge instructions verbalized by patient. ADDITIONAL INFORMATIONChest Wall Pain: Costochondritis 2 General Instructions [facility] Emergency Department [address] [place] [address] Phone #: ext- [phone] 03/04/2020 04:01 Patient: WALKER YOON Sex: F : 1995 Age: 24yThe chest pain that you have had today is caused by costochondritis. This condition is caused by aninflammation of the cartilage joining your ribs to your breastbone. It is not caused by heart or lungproblems. Your healthcare team has made sure that the chest pain you feel is not from a lifethreatening cause of chest pain such as heart attack, collapsed lung, blood clot in the lung, tear in theaorta, or esophageal rupture. The inflammation may have been brought on by a blow to the chest,lifting heavy objects, intense exercise, or an illness that made you cough and sneeze a lot. It oftenoccurs during times of emotional stress. It can be painful, but it is not dangerous. It usually goes awayin 1 to 2 weeks. But it may happen again. Rarely, a more serious condition may cause symptomssimilar to costochondritis. That's why it's important to watch for the warning signs listed below.Home careFollow these guidelines when caring for yourself at home: If you feel that emotional stress is a cause of your condition, try to figure out the sources of that stress. It may not be obvious. Learn ways to deal with the stress in your life. This can include re gular exercise, muscle relaxation, meditation, or simply taking time out for yourself. You may use acetaminophen, ibuprofen, or naproxen to control pain, unless another pain medicine was prescribed. If you have liver or kidney disease or ever had a stomach ulcer, talk with your healthcare provider before using these medicines. You can also help ease pain by using a hot, wet compress or heating pad. Use this with or without a medicated skin cream that helps relieves pain. Do stretching exercise as advised by your provider. Take any prescribed medicines as directed. 3 General Instructions [facility] Emergency Department [address] [place] [address] Phone #: ext- [phone] 03/04/2020 04:01 Patient: WALKER YOON Sex: F : 1995 Age: 24yFollow-up careFollow up with your healthcare provider, or as advised, if you do not start to get better in the next 2days.When to seek medical adviceCall your healthcare provider right away if any of these occur: A change in the type of pain. Call if it feels different, becomes more serious, lasts longer, or spreads into your shoulder, arm, neck, jaw, or b ack. Shortness of breath or pain gets worse when you breathe Weakness, dizziness, or fainting Cough with dark-colored sputum (phlegm) or blood Abdominal pain Dark red or black stools Fever of 100.4F (38C) or higher, or as directed by your healthcare provider [id number] [employer]. [address] [place] [address]. All rights reserved. This information is not intended as asubstitute for professional medical care. Always follow your healthcare professional's instructions. You have been given the following additional information: Chest Wall Pain, Costochondritis(Electronically signed by Claire Murcia MD 03/04/2020 06:52) Name Value Range Interpretation Code Description Data Haley rce(s) Supporting Document(s) ID Date Data Source [id number] 03/04/2020 04:05:00 AM EDT [facility] 1 Clinical Report - Nurses [facility] Emergency Department [address] [place] [address] Phone #: ext- [phone] 03/04/2020 04:01 Patient: WALKER YOON Sex: F : 1995 Age: 24yTRIAGEArrived by private vehicle. Historian: patient. Accompanied by family.Acuity: LEVEL 3.Chief Complaint: (loss of hearing).Alert. No acute distress.( Patient arrives c/o intermittent loss of hearing that started today. Pt states she also felt dizzy "like heavy"and "almost passed out". Pt states during that episode she lost "some" of her hearing. Pt arrives andappears to be anxious. Pt denies any pain. Pt denies any congestion, cp, sob, n/v/d, fevers or chills.).Treatment HAND HARDENER:None. --04:12 03/04/20 Almaz Flores R.N.04:03 03/04/20. BP: 150/90. MAP: 110. HR: 99. RR: 20. O2 saturation: 100% on room air. Temp: 98.3 F.Pain level now: 0/10. --04:12 03/04/20 Almaz Flores R.N.Weight: 95.2 kg stated. Height/Length: 66 inches Per Patient. BMI: 33.9. --04:02 03/04/20 Almaz Flores R.N.MedicationsSynthroid Oral (Tablet 137 mcg), daily. --04:08 03/04/20 Almaz Flores R.N.AllergiesTobacco. --04:03/04/20 Almaz Flores R.N.Vodka. --04:09 03/04/20 Almaz Flores R.N.Penicillins. --04:03/04/20 Amlaz Flores R.N.PROBLEMS:Anxiety.Thyroid Disease. --04:10 03/04/20 Almaz Folres R.N.HistoryPAST MEDICAL HX: Immunizations: up-to-date. Last normal menstrual period- Feb 26.SOCIAL HX: Light tobacco smoker. Occasional alcohol use. History of drug use: marijuana. Thepatient was offered HIV testing but declined. Patient education was provided. The patient was offeredhepatitis C testing but declined. Patient education was provided. The patient has not traveled outside the[place].Infectious disease exposure: No infectious disease exposure. Patient is not a known carrier of tuberculosis,hepatitis, HIV, MRSA or VRE. Patient is not a known carrier of CRE. 2 Clinical Rep ort - Nurses [facility] Emergency Department [address] [place] [address] Phone #: ext- [phone] 03/04/2020 04:01 Patient: WALKER YOON Sex: F : 1995 Age: 24y SELF HARM ASSESSMENT: Self harm assessment was performed. The patient answered "no" to the question(s) "Have you recently felt down, depressed, or hopeless?", "Do you have thoughts of harming or killing yourself?", "Do you have a plan for harming or killing yourself?" and "Have you recently had thoughts about harming or killing others?". ABUSE ASSESSMENT: Abuse assessment. The patient had positive responses to the question(s) "Do you feel safe in your home?", "Are you afraid to go home?" and "Has anyone hurt you or threatened to hurt you?". Abuse denied. NUTRITIONAL RISK ASSESSMENT: The nutritional risk assessment revealed no deficiencies. FUNCTIONAL ASSESSMENT: Functional assessment: no impairments noted. LEARNING NEEDS ASSESSMENT: [facility] needs assessment revealed no barriers. FALL RISK ASSESSMENT: Fall risk assessment completed. No risk factors identified. SKIN INTEGRITY ASSESSMENT: Skin integrity risk assessment completed. No skin integrity risk identified. --04:12 03/04/20 Almaz Flores R.N. Interventions Identification band on patient. To treatment room. --04:03/04/20 Almaz Flores R.N.PHYSICAL ASSESSMENTAmbulatory to room. Patient gowned.GENERAL / NEURO / PSYCH: Alert. Oriented X 4. Appears in no acute distress. Appears anxious. (Patient states 1 episodes of dizziness where she felt "heavy.").HEENT: Pupils equal, round and reactive to light. No facial asymmetry noted. ( Patient reportsintermittent loss of hearing). Mucous membranes are pink.RESPIRATORY: Respirations not labored. Chest nontender. Breath sounds within normal limits.CVS: Normal sinus rhythm noted. Capillary refill less than 2 seconds. Pulses within normal limits.GI / : Abdomen soft and nontender and normal bowel sounds.SKIN: Skin intact. Skin is warm and dry. Normal skin turgor. --04:13 03/04/20 Almaz Flores R.N.NURSING PROGRESS NOTESReassurance given. Two patient identifiers checked. Call light placed in reach. Side rails up x 2. Bedplaced in lowest position. Brakes of bed on. --04:12 03/04/20 Almaz Flores R.N. Rounding: Pain: denies pain. Position: states comfortable and repositioned. Proximity of possessions / care items: call light within easy reach. Plug ins: assured IV pump plugged in; checked status of equipment in use; located all cords, tubes, and lines to prevent fall hazard. Set expectations: advised patient of rounding protocol timing and asked if they needed anything else at this time. The patient is calm and resting quietly. ( Look at written orders for medication given at this time.). --04:23 03/04/20 Almaz Flores R.N. Charted On Wrong Patient --05:09 03/04/20 Almaz Flores R.N. 3 Clinical Report - Nurses [facility] Emergency Department [address] [place] [address] Phone #: ext- [phone] 03/04/2020 04:01 Patient: WALKER YOON Sex: F : 1995 Age: 24y 04:22 03/04/20. BP: 102/60. MAP: 74. HR: 87. RR: 20. O2 saturation: 100% on room air. Temp: 98.2 F. Pain level now: 0/10. --04:23 03/04/20 Almaz Flores R.N. Charted on wrong patient. --05:09 03/04/20 Almaz Flores R.N. EKG time: (04:37 03/04/2020). EKG was performed by a nurse and shown to the ED physician. --04:39 03/04/20 Almaz Flores R.N.DISPOSITION / DISCHARGE No learning barriers present. Discharge instructions provided and reviewed with the patient. Reviewed warnings. Reviewed medication(s). Treatments reviewed. Reviewed referrals. Patient verbalized understanding. Written instructions provided in [facility]. The patient was discharged home and accompanied by parent. She left ambulatory and via private vehicle. Parent driving. --05:10 03/04/20 Almaz Flores R.N. 05:09 03/04/20. BP: 145/86. MAP: 105. HR: 86. RR: 20. O2 saturation: 100% on room air. Temp: 98.2 F. Pain level now: 0/10. --05:10 03/04/20 Almaz Flores R.N.Locked/Released at 03/04/2020 05:11 by Almaz Flores R.N. Name Value Range Interpretation Code Description Data Haley rce(s) Supporting Document(s) ID Date Data Source [id number] 03/04/2020 04:05:00 AM EDT [facility] 1 Clinical Report - Physicians/Mid Levels [facility] Emergency Department [address] [place] [address] Phone #: ext- [phone] 03/04/2020 04:01 Patient: WALKER YOON Sex: F : 1995 Age: 24y Arrived- By private vehicle. Historian- patient and family (mother conveyed information over the phone). Disposition decision: 04:41 03/04/2020.HISTORY OF PRESENT ILLNESS Chief Complaint: rash. This started just prior to arrival and is now gone. At its maximum, severity described as mild. When seen in the E.D., it was gone. Modifying factors. Not worsened by anything. Not relieved by anything. No loss of appetite, weight loss, headache, visual disturbance or fatigue. No muscle aches or weakness. Denies sleep problem. No decreased urine output. (Patient arrives c/o intermittent loss of hearing that started today. Pt states she also felt dizzy "like heavy" and "almost passed out". Pt states during that episode she lost "some" of her hearing. Pt arrives and appears to be anxious. Pt denies any pain. Pt denies any congestion, cp, sob, n/v/d, fevers or chills. she stated that these symptoms started after she spoked marijuana. she states that she does not believe her symptoms are from the marijuana. Pt also complains of having a lump to her right face and fullness to her buttock area that have all been there for years. she states she has an appt to get her blood drawn on saturday and to see the doctor.). Similar symptoms previously. None. Recent medical care: Not recently seen/assessed.REVIEW OF SYSTEMSNo sore throat or throat, sinus drainage or nasal congestion or congestion. No cough, difficulty breathing,chest pain or abdominal pain or pain. No nausea, vomiting, diarrhea or black stools or stools. No bloodystools or stools, difficulty with urination or urination or abnormal bleeding. No vaginal discharge, skin rashor rash or back pain or pain. No calf pain or pain, headache or blackouts. No double vision or vision,chills, fever or decreased vision. No eye irritation, photophobia, ear drainage or pain or hearing loss. Notinnitus, epistaxis, runny nose, sinus pain or mouth sores. No toothache, cough, difficulty breathing, pedaledema or palpitations. No constipation, diarrhea, nausea, vomiting or urinary frequency. No hematuria,headache, seizure, easy bruising or swelling. No difficulty with ambulation. The patient has had chestpain.PAST HISTORYSee nurses notes. Problems: Anxiety. Thyroid Disease. Medications: 2 Clinical Report - Physicians/Mid Levels [facility] Emergency Department [address] [place] [address] Phone #: ext- [phone] 03/04/2020 04:01 Patient: WALKER YOON Sex: F : 1995 Age: 24y Synthroid Oral (Tablet 137 mcg), daily. Allergies: Penicillins. Tobacco. Vodka.SOCIAL HISTORYSmoker- current status unknown. History of drug use: marijuana.ADDITIONAL NOTESThe nursing notes have been reviewed.PHYSICAL EXAMVital Signs: 03/04/2020 04:22 BP: 102/60. MAP: 74. HR: 87. RR: 20. O2 saturation: 100% on room air.Temp: 98.2 F. Pain level now: 0/10.03/04/2020 04:03 BP: 150/90. MAP: 110. HR: 99. RR: 20. O2 saturation: 100% on room air. Temp: 98.3 F.Pain level now: 0/10. Have been reviewed and appear to be correct. Blood pressure normal. Meanarterial pressure- normal. Heart rate normal. Respiratory rate normal. Temperature normal. Oxygensaturation normal.Appearance: Alert. No acute distress.Eyes: Pupils equal, round and reactive to light. Eyes normal inspection.ENT: Ears normal. Nose normal. Pharynx normal.Neck: Normal inspection. Neck supple.CVS: Normal heart rate and rhythm. Heart sounds normal. Pulses normal.Respiratory: No respiratory distress. Painless inspiration. Breath sounds normal.Abdomen: No visible injury. Soft and nontender. Bowel sounds n ormal.Back: Normal inspection. No CVA tenderness.Skin: Skin warm and dry. Normal skin color. No rash. Normal skin turgor. (small soft tissue massapprox 1cm in diameter anterior to right ear, non-tender, no redness, fullness to her sacrum appear to befatty tissue).Extremities: Extremities exhibit normal ROM. No lower extremity edema.Neuro: Oriented X 3. No motor deficit. No sensory deficit. (reproducible chest wall pain. pt was ableto walk approx 50 with without any difficulty. she was able to bend over and reach for the ceiling.).PROGRESS AND PROCEDURESCourse of Care: Pt presents to the ED for evaluation of her weakness after she smoked marijuana. sheappeared to be very anxious. she denies being . she goes to sleep late night around 3am andwakes up around 5:30am. she smokes marijuana and is not the most healthy. She has reproduciblechest wall pain. she is concerned about cancer. she showed me a small fatty lesion to her right face. Iencouraged her to f/u with pcp for further evaluation. it has been there for years hence no emergentissue. she also showed me fatty tissue to her sacrum. no evidence of infection, no neuro deficits. Iencouraged her to f/u with pcp. her chest pain is reproducible. her ekg was nl. I encouraged her to livea healthy lifestyle, go to bed early, stop smoking marijuana and ear healthy. I further encouraged her tokeep her appt for labs scheduled on saturday and to keep her f/u appt with her doctor. mother was on the 3 Clinical Report - Physicians/Mid Levels [facility] Emergency Department [address] [place] [address], [facility] [address] Phone #: ext- [phone] 03/04/2020 04:01 Patient: WALKER YOON Sex: F : 1995 Age: 24y phone as I gave these instructions. pt was discharged. Patient/family counseled. Disposition: Discharged. Condition: good and stable.CLINICAL IMPRESSION Costochondritis Marijuana use.INSTRUCTIONS (Please follow up with your primary care physician. Keep your appt for labs on saturday. please try to avoid any drug use. discuss with your doctor the lesion to your face and the fullness to your face. you may take tylenol or motrin for any chest wall discomfort.). Warnings: Further evaluation is necessary. GENERAL WARNINGS: Return or contact your physician immediately if your condition worsens or changes unexpectedly, if not improving as expected, or if other problems arise. Your Current Medications: Your current home medications have been reviewed. CONTINUE TAKING THE FOLLOWING MEDICATIONS: Synthroid Oral : Tablet 137 mcg, daily. Understanding of the discharge instructions verbalized by patient.(Electronically signed by Claire Murcia MD 03/04/2020 06:52) Name Value Range Interpretation Code Description Data Haley rce(s) Supporting Document(s) Procedure Social History Code Duration Value Status Description Data Source(s ) Smoking 03/22/2020 12:00:00 AM EST Patient has never smoked co mpleted Patient has never smoked [facility] ([facility]) Vital Signs ID Date Data Source UNK Name Value Range Interpretation Code Description Data Source(s) [place] body weight 130 [lb_av] 130 [lb_av] [facility] T ([facility]) Body mass index (BMI) [Ratio] 30.2 kg/m2 30.2 k g/m2 [facility] ([facility]) Body weight 187.00 [lb_av] 187.00 [lb_av] [facility] ([facility]) Body height 66 [in_i] 66 [in_i] [facility] ([facility]) 5'6" Respiratory rate 12 /min 12 /min [facility] ( [facility]) Body mass index (BMI) [Ratio] 29.8 kg/m2 29.8 k g/m2 [facility] ([facility]) Body height 67 [in_i] 67 [in_i] [facility] ([facility]) 5'7" Body weight 190.00 [lb_av] 190.00 [lb_av] [facility] ([facility]) Body temperature 97.7 [degF] 97.7 [degF] [facility] ([facility]) Respiratory rate 16 /min 16 /min [facility] ( [facility]) Heart rate 78 /min 78 /min [facility] ([facility], [facility]) Diastolic blood pressure 72 mm[Hg] 72 mm[Hg] [facility] ([place] [facility], [facility]) Systolic blood pressure 116 mm[Hg] 116 mm[Hg] [facility] ([place] [facility], [facility])
[2020-05-26] MEDS ORDERED: SYNT150T PO (17:47)
--- OUTSIDE RECORDS SUMMARY | 2020-05-26 18:25 | CCD ---
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 Supporting Document(s) CULTURE URINE [facility] spital _CULTURE URINE_$$[id number]$$[id number]$$[id number]$$[id number]$$[id number]$$[id number]$$[id number]$$457163$$[id number]$$ 621964$$673350$$214740$$641992$$641613$$778189$$668029$$219103$$381312$$161768$$ 364504$$795519$$116112$$679162$$082074$$432380$$401884$$[id number] -- Continued on next page --Patient: CAR CARDOSO Order: [id number] Page 2Culture: CULTURE URINE Status: Final ==== -- Continued on next page --Patient: CAR CARDOSO Order: [id number] Page 2Culture: CULTURE URINE Status: Prelim =====$$[id number] DATE/TIME: 03/20/2020 12:05Culture: CULTURE URINE Status: FinalUrine Culture,Comprehensive: [id number] urogenital flora10,000-25,000 colony forming units per mL Previous result entered on 03/19/2020 06:17 ET Specimen has been received and testing has been initiated.P1 Test performed by: [employer] Estelle GEORGE #: [id number] [address] [place] [id number] [facility] [id number] Director : Ming Garcia MD NPI #:[employer] : 03/19/20.0711.XMT.SENT REF 03/20/20.1213.XMT.SENT REF ID Date Data Source [id number] 03/16/2020 03:32:[address] [facility] Name Value Range Interpretation Code Description Data Haley rce(s) Supporting Document(s) DRUG SCREEN URINE [facility] URINE DRUG SCREEN Amphetamine [Presence] in Urine by Screen method NEGATIVE NORMAL: N EGATIVE [facility] BARBITURATES NEGATIVE NORMAL: NEGATIVE [facility] BENZO NEGATIVE NORMAL: NEGATIVE [facility] COCAINE NEGATIVE NORMAL: NEGATIVE [facility] Tetrahydrocannabinol [Presence] in Urine PRESUMP POS NORMAL: NEGATIVE [facility] OPIATES NEGATIVE NORMAL: NEGATIVE [facility] Phencyclidine [Presence] in Urine by Screen method NEGATIVE NOR MAL: NEGATIVE [facility] \\BLDo\\URINE DRUG SCR EEN INTERPRETATION\\BLDx\\ THE CUTOFFF LEVELS FOR DETECTION ARE FOLLOWS: AMPHETAMINES 1000 ng/ml BARBITUARATES 200 ng/ml BENZODIAZEPINES 100 ng/ml THC 50 ng/ml PHENCYCLIDINE 25 ng/ml OPIATES 300 ng/ml COCAINE 300 ng/ml ALL POSITIVES ARE CONSIDERED PRESUMPTIVE POSITIVE CONFIRMATION WILL BE PERFORMED AT PHYSICIAN REQUEST. ID Date Data Source [id number] 03/16/2020 03:12:00 PM EST [facility] Name Value Range Interpretation Code Description Data Haley rce(s) Supporting Document(s) [facility] COL[facility] yellow NORMAL: Yellow [facility] CLARITY cloudy NORMAL: Clear [facility] Specific gravity of Urine by Test strip 1.015 1.001 - 1.030 [facility] pH 8 5 - 9 [facility] al Glucose [Mass/volume] in Urine by Test strip NORM NORMAL: Negat omar [facility] Bilirubin.total [Presence] in Urine by Test strip NEG NORMAL: Negative [facility] Ketones [Presence] in Urine by Test strip 5 NORMAL: Negative [facility] Protein [Mass/volume] in Urine by Test strip 100 NORMAL: Negat omar [facility] Nitrite [Presence] in Urine by Test strip NEG NORMAL: Negative [facility] BLOOD 10 NORMAL: Negative [facility] Leukocyte esterase [Presence] in Urine by Test strip 25 CLAIRE L: Negative [facility] Urobilinogen [Mass/volume] in Urine by Test strip 1 less cristine n 1.0 mg/dL [facility] MICROSCOPIC See Below [facility] ital WBC 0 - 1 NORMAL: NONE SEEN [facility] Erythrocytes [#/volume] in Urine by Test strip 0 - 1 NORMAL: NON E SEEN [facility] EPITHELIAL FEW NORMAL: NONE SEEN [facility] Bacteria [Presence] in Urine sediment by Light microscopy Tr joão NORMAL: NONE SEEN [facility] Mucus [Presence] in Urine sediment by Light microscopy 2+ NOR MAL: NONE SEEN A [facility] Amorphous sediment [Presence] in Urine sediment by Light leatha roscopy 2+ NORMAL: NONE SEEN [facility] Casts [#/area] in Urine sediment by Microscopy low power field See Be low [facility] Coarse Granular Casts [#/area] in Urine sediment by Mi croscopy low power field 1-3 NORMAL: None Seen A [facility] Crystals [type] in Urine sediment by Light microscopy See Below [facility] CALCIUM OX 2+ NORMAL: NONE SEEN A [facility] ID Date Data Source [id number] 03/16/2020 01:59:00 PM [facility] Name Value Range Interpretation Code Description Data Haley rce(s) Supporting Document(s) Thyrotropin [Units/volume] in Serum or Plasma by Detec tion limit <= 0.05 mIU/L 0.14 uIU/mL 0.47 - 5.01 L [facility] ID Date Data Source [id number] 03/16/2020 01:22:00 PM [facility] Value Range Interpretation Code Description Data Haley rce(s) Supporting Document(s) TROPONIN T <0.01 NG/ML 0.00 - 0.10 [facility] ospital TROPONIN T0.1 ng/ml Recommended as the c linical threshold value forTroponin T. ID Date Data Source [id number] 03/16/2020 01:22:00 PM [facility] Name Value Range Interpretation Code Description Data Haley rce(s) Supporting Document(s) Creatine kinase [Enzymatic activity/volume] in Serum or Plasma 1 02 U/L 30 - 170 [facility] ID Date Data Source [id number] 03/16/2020 01:22:00 PM [facility] Name Value Range Interpretation Code Description Data Haley rce(s) Supporting Document(s) Ethanol [Moles/volume] in Blood <10.0 MG/DL [facility] ALCOHOL % 0.00 % 0.00 - 0.01 [facility] ital *FOR MEDICAL PURPOSES ONLY * ID Date Data Source [id number] 03/16/2020 01:22:00 PM [facility] Name Value Range Interpretation Code Description Data Haley rce(s) Supporting Document(s) Acetaminophen [Presence] in Urine <5.0 UG/ML 0.0 - 30.0 [facility] ID Date Data Source [id number] 03/16/2020 01:22:[address] [facility] Name Value Range Interpretation Code Description Data Haley rce(s) Supporting Document(s) SALICYLATE <0.3 mg/dL 2.0 - 20.0 L [facility] pital ID Date Data Source [id number] 03/16/2020 01:22:00 PM [facility] Name Value Range Interpretation Code Description Data Haley rce(s) Supporting Document(s) Lipase [Enzymatic activity/volume] in Serum or Plasma 22 U/L 13 - 60 [facility] ID Date Data Source [id number] 03/16/2020 01:21:00 PM [facility] Name Value Range Interpretation Code Description Data Haley rce(s) Supporting Document(s) COMPREHENSIVE METABOLIC PANEL [facility] COMPREHENSIVE METABOLIC PANEL Sodium [Moles/volume] in Serum or Plasma 140 mEq/L 134 - 153 [facility] Potassium [Moles/volume] in Serum or Plasma 4.0 mEq/L 3.6 - 5.0 [facility] Chloride [Moles/volume] in Serum or Plasma 106 mEq/L 98 - 107 [facility] Carbon dioxide, total [Moles/volume] in Serum or Plasma 26 MEQ/L 22 - 30 [facility] Glucose [Mass/volume] in Serum or Plasma 129 MG/DL 65 - 110 H [facility] BUN 7 MG/DL 7 - 21 [facility] Creatinine [Mass/volume] in Serum or Plasma 0.8 MG/DL 0.7 - 1.5 [facility] BUN/CREAT 9 8 - 27 [facility] Protein [Mass/volume] in Serum or Plasma 7.1 G/DL 6.3 - 8.2 [facility] Albumin [Mass/volume] in Serum or Plasma 4.3 G/DL 3.9 - 5.0 [facility] Globulin [Mass/volume] in Serum by calculation 2.8 GM/DL 2.4 - 3.2 [facility] A/G RATIO 1.5 0.8 - 2.0 [facility] Calcium [Mass/volume] in Serum or Plasma 10.0 MG/DL 8.4 - 10.2 [facility] Bilirubin.total [Mass/volume] in Serum or Plasma <0.7 MG/DL 0.2 - 1.3 [facility] Alkaline phosphatase [Enzymatic activity/volume] in Serum or Plasma 109 U/L 38 - 126 [facility] Aspartate aminotransferase [Enzymatic activity/volume] in Serum or Plasma 16 U/L 5 - 40 [facility] Alanine aminotransferase [Enzymatic activity/volume] in Seru m or Plasma 20 U/L 7 - 56 [facility] Anion gap 3 in Serum or Plasma 8.0 mmol/L 8.0 - 16.0 [facility] AGE 24 yrs [facility] al NON-AA GFR >60 mL/min [facility] ital AFR AMER GFR >60 mL/min [facility] spital Male GFR In terprentation [...] >32 mL/min Normal ID Date Data Source [id number] 03/16/2020 01:19:00 PM EST [facility] Name Value Range Interpretation Code Description Data Haley rce(s) Supporting Document(s) CBC W/AUTOMATED DIFF [facility] COMPLETE BLOOD COUNT Leukocytes [#/volume] in Blood by Automated count 13.0 10^3/uL 4.2 - 11.0 H [facility] Erythrocytes [#/volume] in Blood by Automated count 4.27 10^6/uL 4. 20 - 5.40 [facility] Hemoglobin [Mass/volume] in Blood 14.0 g/dL 12.0 - 16.0 [facility] Hematocrit [Volume Fraction] of Blood by Automated count 41.2 % 3 7.0 - 47.0 [facility] Erythrocyte mean corpuscular volume [Entitic volume] by Auto mated count 96.5 fL 81.0 - 101 [facility] Erythrocyte mean corpuscular hemoglobin [Entitic mass] by Automated count 32.8 pg 27.0 - 34.0 [facility] Erythrocyte mean corpuscular hemoglobin concentration [Mass/volume] by Automated count 34.0 g/dL 31.0 - 36.0 [facility] Erythrocyte distribution width [Ratio] by Automated count 13.2 % 11.5 - 14.5 [facility] Platelets [#/volume] in Blood by Automated count 329 10^3/uL 150 - 45 0 [facility] Platelet mean volume [Entitic volume] in Blood by Automated count 10.0 fL 7.4 - 10.4 [facility] Neutrophils/100 leukocytes in Blood by Automated count 82.9 % 37. 0 - 80.0 H [facility] Lymphocytes/100 leukocytes in Blood by Manual count 7.5 % 25.0 - 40.0 L [facility] Monocytes/100 leukocytes in Blood by Automated count 8.4 % 3.0 - 8.0 H [facility] Eosinophils/100 leukocytes in Blood by Automated count 0.1 % 0.0 - 7.0 [facility] 0.6 %IG 0.5 % 0.0 - 0.0 H [facility] al %NRBC 0.0 % 0.0 - 0.0 [facility] al Neutrophils [#/volume] in Blood by Automated count 10.79 10^3/uL 2. 00 - 6.90 H [facility] Lymphocytes [#/volume] in Blood by Automated count 0.98 10^3/uL 0.60 - 3.40 [facility] Monocytes [#/volume] in Blood by Automated count 1.09 10^3/uL 0.00 - 0.90 H [facility] Eosinophils [#/volume] in Blood by Automated count 0.01 10^3/uL 0.00 - 0.70 [facility] Basophils [#/volume] in Blood by Automated count 0.08 10^3/uL 0.00 - 0.20 [facility] #IG 0.06 10^3/uL 0.00 - 0.10 [facility] ospital #NRBC 0.00 10^3/uL 0.00 - 0.00 [facility] o[facility]ital MANUAL DIFF SEE BELOW [facility] ital Segmented neutrophils/100 leukocytes in Blood by Manual count 81 % 37 - 80 H [facility] %LYMPH 9 % 25 - 40 L [facility] %MONO 9 % 3 - 8 H [facility] al 1 RBC MORPH NOT INDICATED [facility] spital ID Date Data Source [id number] 03/16/2020 01:17:00 PM EST [facility] Name Value Range Interpretation Code Description Data Haley rce(s) Supporting Document(s) HCG SERUM QUAL NEGATIVE NORMAL: NEGATIVE [facility] HCG SERUM QL REENTER NEGATIVE NORMAL: NEGATIVE [facility] { KIT LOT # [id number] ){ KIT EXP DATE 02.08.21 ){ PROCEDURAL CONTROL VALID ) ID Date Data Source [id number] 03/16/2020 01:16:00 PM [facility] Name Value Range Interpretation Code Description Data Haley rce(s) Supporting Document(s) Prothrombin time (PT) 14.5 SECONDS 11.0 - 15.5 [facility] INR in Platelet poor plasma by Coagulation assay 1.12 0.93 - 1. 23 [facility] aPTT in Blood by Coagulation assay 22.9 SECONDS 24.8 - 36.7 L [facility] \\BLDo\\INR INTERPRETATION\\BLDx\\ Therapeutic range for Coumadin and related oral anticoagulants. - International Normalized Ratio (INR): 2.0 - 3.0 for Venous Thrombosis, Pulmonary Embolus, Tissue heart valves, Acute FL Atrial Fibrillation, Valvular heart disease and recurrent Systemic Embolism. - International Normalized Ratio (INR): 2.5 - 3.5 for Mechanical Prosthetic valve. ID Date Data Source [id number] 03/16/2020 01:03:00 PM EST [facility] Name Value Range Interpretation Code Description Data Haley rce(s) Supporting Document(s) Lactate [Moles/volume] in Serum or Plasma 2.1 MMOL/L 0.2 - 2.2 [facility] ID Date Data Source [id number] 03/04/2020 07:43:00 [place] [address] RESPIRATORY CARE REPORT ==== ---------NAME------- NUMBER SEX AGE ADMIT DISC. XRAY# F/C AYUSH CARDOSO [id number] 24 03/04/20 03/04/20 [id number] E/R DATE OF : 1995 M/R# [id number] #: [id number] TR-05 LOCATION: EKG 49534 COMPLETE:03/04/20 0 7:27 [place] [id number] PHYSICIAN: KATHY POLK Name Value Range Interpretation Code Description Data Haley rce(s) Supporting Document(s) ID Date Data Source [id number] 03/04/2020 04:05:00 AM EDT [facility] 1 OrderSheet [facility] Emergency Department [address] [place] [address] Phone #: ext- [phone] 03/04/2020 04:01 Patient: [...] rce(s) Supporting Document(s) ID Date Data Source [id number] 03/04/2020 04:05:00 AM EDT [facility] 1 Medication Reconciliation Report [facility] Emergency Department [address] [place] [address] Phone #: ext- [phone] 03/04/2020 04:01 Patient: [...] rce(s) Supporting Document(s) ID Date Data Source [id number] 03/04/2020 04:05:00 AM EDT [facility] 1 Medication Administration Record [facility] Emergency Department [address] [place] [address] Phone #: ext- [phone] 03/04/2020 04:01 Patient: WALKER YOON Sex: F : 1995 Age: 24yWeight: 95.2 kgHeight/Length: 66 inBMI: 33.9ALLERGIES: Penicillins, Vodka, TobaccoDate/Time Medication Administered Medication Ordered Name Value Range Interpretation Code Description Data Haley rce(s) Supporting Document(s) ID Date Data Source [id number] 03/04/2020 04:05:00 AM EDT [facility] 1 General Instructions [facility] Emergency Department [address] [place] [address] Phone #: ext- [phone] 03/04/2020 04:01 Patient: [...] INFORMATIONChest Wall Pain: Costochondritis 2 General Instructions [facility] Emergency Department [address] [place] [address] Phone #: ext- [phone] 03/04/2020 04:01 Patient: [...] prescribed medicines as directed. 3 General Instructions [facility] Emergency Department [address] [place] [address] Phone #: ext- [phone] 03/04/2020 04:01 Patient: [...] or as directed by your healthcare provider [phone] [employer]. [address] [place] [address]. All rights reserved. This information is not intended as asubstitute for professional medical care. Always follow your healthcare professional's instructions. You have been given the following additional information: Chest Wall Pain, Costochondritis(Electronically signed by Claire Murcia MD 03/04/2020 06:52) Name Value Range Interpretation Code Description Data Haley rce(s) Supporting Document(s) ID Date Data Source [id number] 03/04/2020 04:05:00 AM EDT [facility] 1 Clinical Report - Nurses [facility] Emergency Department [address] [place] [address] Phone #: ext- [phone] 03/04/2020 04:01 Patient: [...] congestion, cp, sob, n/v/d, fevers or chills.).Treatment INFANTRY OPERATIONS SPECIALIST:None. --04:12 03/04/20 Almaz Flores R.N.04:03 03/04/20. BP: [...] R.N.Vodka. --04:09 03/04/20 Almaz Flores R.N.Penicillins. --04:03/04/20 Almaz Flores R.N.PROBLEMS:Anxiety.Thyroid Disease. --04:10 03/04/20 Almaz Flores R.N.HistoryPAST MEDICAL HX: Immunizations: up-to-date. Last normal [...] CRE. 2 Clinical Rep ort - Nurses [facility] [address] [place] [address] Phone #: ext- [phone] 03/04/2020 04:01 Patient: [...] no impairments noted. LEARNING NEEDS ASSESSMENT: [facility] needs assessment revealed no barriers. FALL [...] Flores R.N. 3 Clinical Report - Nurses [facility] Department [address] [place] [address] Phone #: ext- [phone] 03/04/2020 04:01 Patient: [...] Patient verbalized understanding. Written instructions provided in Kittitian. The patient was discharged home and accompanied [...] rce(s) Supporting Document(s) ID Date Data Source [id number] 03/04/2020 04:05:00 AM EDT [facility] 1 [facility] [address] [place] [address] Phone #: ext- [phone] 03/04/2020 04:01 Patient: [...] Medications: 2 Clinical Report - [facility] [address] [place] [address] Phone #: ext- [phone] 03/04/2020 04:01 Patient: [...] the 3 Clinical Report - [facility] Emergency Department [address] [place] [address], [facility] [address] Phone #: ext- [phone] 03/04/2020 04:01 Patient: [...] co mpleted Patient has never smoked [facility] ([facility]) Vital Signs ID Date Data Source UNK Name Value Range Interpretation Code Description Data Source(s) [place] body weight 130 [lb_av] 130 [lb_av] [facility] T ([facility]) Body mass index (BMI) [Ratio] 30.2 kg/m2 30.2 k g/m2 [facility] ([facility]) Body weight 187.00 [lb_av] 187.00 [lb_av] [facility] ([facility]) Body height 66 [in_i] 66 [in_i] [facility] ([facility]) 5'6" Respiratory rate 12 /min 12 /min [facility] ( [facility]) Body mass index (BMI) [Ratio] 29.8 kg/m2 29.8 k g/m2 [facility] ([facility]) Body height 67 [in_i] 67 [in_i] [facility] ([facility]) 5'7" Body weight 190.00 [lb_av] 190.00 [lb_av] [facility] T ([facility]) Body temperature 97.7 [degF] 97.7 [degF] [facility] ([facility]) Respiratory rate 16 /min 16 /min [facility] ( [facility]) Heart rate 78 /min 78 /min [facility] ([facility]) Diastolic blood pressure 72 mm[Hg] 72 mm[Hg] [facility] ([facility]) Systolic blood pressure 116 mm[Hg] 116 mm[Hg] M JUAN ALBERTO ([facility])
[2020-05-26 21:10] LABS: AMPHETAMINES LEVEL URINE NEGATIVE (NEGATIVE); BARBITURATES URINE NEGATIVE (NEGATIVE); BENZODIAZEPINES URINE NEGATIVE (NEGATIVE); CANNABINOIDS URINE POSITIVE (NEGATIVE); COCAINE METABOLITE URINE NEGATIVE (NEGATIVE); METHADONE URINE NEGATIVE (NEGATIVE); OPIATES URINE NEGATIVE (NEGATIVE); PHENCYCLIDINE URINE NEGATIVE (NEGATIVE)
== END 2020-05-26 22:04 | disposition home or self-care (01) ==
LOC: M ED 16:34
DX: Z60.9 Problem related to social environment, unspecified (principal); Z79.899 Other long term (current) drug therapy

== ENCOUNTER 2020-09-28 16:09 | Inpatient (IN) | payer OTHER ==
[~2020-09-28] VITALS: Ht 167.6 cm; Wt 77.6 kg
[~2020-09-28 16:09] MED LIST: SYNT150T PO
[2020-09-28] MEDS ORDERED: HALOPERIDOL 5MG/ML VIAL (J1630 PER 1) As Ordered ONE (19:26)
[2020-09-28] MEDS ORDERED: LORazepam 2 MG/ML VIAL As Ordered ONE (19:27)
[2020-09-28] MEDS ORDERED: LORazepam 2 MG/ML VIAL IM ONE (19:30)
[2020-09-28] MEDS ORDERED: HALOPERIDOL 5MG/ML VIAL (J1630 PER 1) IM ONE (19:30)
[2020-09-28 19:51] LABS: HEMATOCRIT 46.3 % (36.0-47.0); HEMOGLOBIN 14.7 g/dl (12.0-15.5); MEAN CORPUSCULAR HEMOGLOBIN 32.7 pg (27.0-33.0); MEAN CORPUSCULAR HGB CONC 31.7 g/dl (32.0-36.5); MEAN CORPUSCULAR VOLUME 103.1 fl (80.0-96.0); PLATELET COUNT, AUTOMATED 340 10^3/uL (150-450); RED BLOOD COUNT 4.49 10^6/uL (4.00-5.40); WHITE BLOOD COUNT 16.9 10^3/uL (4.0-10.0)
[2020-09-28 20:16] LABS: HCG, SERUM QUALITATIVE POSITIVE (NEGATIVE)
[2020-09-28 20:33] LABS: ACETAMINOPHEN LEVEL < 2.0 UG/ML (10.0-30.0); ALBUMIN 4.1 GM/DL (3.2-5.2); ALT/SGPT 21 U/L (12-78); BILIRUBIN,DIRECT 0.1 MG/DL (0.0-0.2); BILIRUBIN,TOTAL 0.3 MG/DL (0.2-1.0); BLOOD UREA NITROGEN 12 MG/DL (7-18); CALCIUM LEVEL 9.5 MG/DL (8.5-10.1); CARBON DIOXIDE LEVEL 18 MEQ/L (21-32); CHLORIDE LEVEL 105 MEQ/L (98-107); CREATININE FOR GFR 1.06 MG/DL (0.55-1.30); ETHYL ALCOHOL (ETHANOL) < 0.003 % (0.000-0.010); GLOMERULAR FILTRATION RATE > 60.0 (>60); GLUCOSE, FASTING 107 MG/DL (70-100); POTASSIUM SERUM 3.6 MEQ/L (3.5-5.1); SALICYLATE LEVEL < 1.7 MG/DL (5.0-30.0); SODIUM LEVEL 140 MEQ/L (136-145); TOTAL PROTEIN 8.2 GM/DL (6.4-8.2)
[2020-09-28 20:44] LABS: AMPHETAMINES LEVEL URINE NEGATIVE (NEGATIVE); BARBITURATES URINE NEGATIVE (NEGATIVE); BENZODIAZEPINES URINE NEGATIVE (NEGATIVE); CANNABINOIDS URINE NEGATIVE (NEGATIVE); COCAINE METABOLITE URINE NEGATIVE (NEGATIVE); METHADONE URINE NEGATIVE (NEGATIVE); OPIATES URINE NEGATIVE (NEGATIVE); PHENCYCLIDINE URINE NEGATIVE (NEGATIVE)
--- NOTE | 2020-09-28 21:35 | REPVR ---
PROCEDURE INFORMATION: Exam: CT Head Without Contrast Exam date and time: 09/28/2020 9:18 PM Age: 24 years old Clinical indication: Other: AMS TECHNIQUE: Imaging protocol: Computed tomography of the head without contrast. Radiation optimization: All CT scans at this facility use at least one of these dose optimization techniques: automated exposure control; mA and/or kV adjustment per patient size (includes targeted exams where dose is matched to clinical indication); or iterative reconstruction. COMPARISON: Thyroid, ST head+neck US 03/09/2016 5:03 PM FINDINGS: Brain: Normal. No hemorrhage. Unremarkable white matter. No mass effect. Cerebral ventricles: No ventriculomegaly. Paranasal sinuses: Visualized sinuses are unremarkable. No fluid levels. Mastoid air cells: Visualized mastoid air cells are well aerated. Bones/joints: Unremarkable. No acute fracture. Soft tissues: Unremarkable. IMPRESSION: No acute intracranial abnormality. Electronically signed by: Wali Moran On 09/28/2020 21:34:54 PM
[2020-09-28 21:51] LABS: HCG, SERUM QUANTITATIVE 63172 MIU/ML
--- NOTE | 2020-09-28 23:55 | REPVR ---
PROCEDURE INFORMATION: Exam: US First Trimester, Transabdominal Exam date and time: 09/28/2020 11:06 PM Age: 24 years old Clinical indication: Screening exam; Routine US, uterus; Additional info: Preg unknown dates eval for iup TECHNIQUE: Imaging protocol: Real-time transabdominal obstetrical ultrasound of the maternal pelvis and a first trimester , less than 14 weeks 0 days, with image documentation. COMPARISON: No relevant prior studies available. FINDINGS: Gestation: Single live intrauterine gestation. Embryonic/ heart rate: cardiac activity is detected at 165 bpm. Placenta: Unremarkable. No subchorionic bleed. Amniotic fluid: Amniotic fluid is normal for gestational age. BIOMETRY: Gestational age (AUA): Estimated gestational age is 8 weeks and 1 day. MATERNAL: Uterus: Unremarkable. Cervix: Unremarkable. Right adnexa: Right ovary is poorly evaluated, no gross abnormality to the degree visualized. Left adnexa: Left ovary is poorly evaluated, no gross acute abnormality to the degree visualized. Intraperitoneal space: No intraperitoneal free fluid. IMPRESSION: Single live intrauterine gestation measuring 8 weeks and 1 day. Electronically signed by: Charanjit Moscoso On 09/28/2020 23:55:09 PM
[2020-09-29] MEDS ORDERED: SYNT150T PO (06:33)
[2020-09-29] MEDS: LEVOTHYROXINE 150MCG TABLET (0.15MG) PO SCH ×2 (08:23→08:38)
[2020-09-29] MEDS ORDERED: ACETAMINOPHEN TAB 650MG DOSE (2X325MG) PO PRN (14:25)
[2020-09-29] MEDS ORDERED: MOM 30ML SUSPENSION UDC PO PRN (14:25)
[2020-09-29] MEDS ORDERED: MAALOX 30 ML SUSP *UDC PO PRN (14:25)
[2020-09-29] MEDS ORDERED: traZODone 50 MG TAB PO PRN (14:25)
[2020-09-29] MEDS ORDERED: OLANZapine ORAL DISINTEGRATING TAB 5MG PO PRN (14:25)
[2020-09-29] MEDS ORDERED: LEVOTHYROXINE 150MCG TABLET (0.15MG) PO ONE (15:05)
[2020-09-29 15:53] LABS: RSV AMPLIFICATION NEGATIVE (NEGATIVE)
[2020-09-29 17:23] VITALS: BP 129/64
[2020-09-30] MEDS ORDERED: UNRESOLVED CLARIFICATION ENTRY XX SCH (00:01)
[2020-09-30 07:01] VITALS: BP 115/67
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
[2020-09-30] MEDS ORDERED: OLANZapine ORAL DISINTEGRATING TAB 5MG PO PRN (13:45)
[2020-09-30 16:34] VITALS: BP 136/76
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
[2020-09-30] MEDS: OLANZapine 2.5MG TABLET PO SCH (20:51)
[2020-10-01] MEDS: LEVOTHYROXINE 150MCG TABLET (0.15MG) PO SCH (05:55)
[2020-10-01 06:21] VITALS: BP 133/63
[2020-10-01] MEDS: OLANZapine 2.5MG TABLET PO SCH ×2 (09:00→20:44)
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
[2020-10-01 16:20] VITALS: BP 123/68
[2020-10-02] MEDS: LEVOTHYROXINE 150MCG TABLET (0.15MG) PO SCH (05:53)
[2020-10-02 06:33] VITALS: BP 116/58
[2020-10-02] MEDS: OLANZapine 2.5MG TABLET PO SCH ×2 (09:00→21:00)
[2020-10-02 16:31] VITALS: BP 127/90
[2020-10-03] MEDS: LEVOTHYROXINE 150MCG TABLET (0.15MG) PO SCH (05:53)
[2020-10-03 06:39] VITALS: BP 111/56
[2020-10-03] MEDS: OLANZapine 2.5MG TABLET PO SCH ×2 (09:00→20:22)
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
[2020-10-03 19:28] VITALS: BP 139/60
[2020-10-04] MEDS: LEVOTHYROXINE 150MCG TABLET (0.15MG) PO SCH (05:38)
[2020-10-04 06:33] VITALS: BP 111/55
[2020-10-04] MEDS: OLANZapine 2.5MG TABLET PO SCH ×2 (09:00→20:28)
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
[2020-10-04 18:13] VITALS: BP 150/71
[2020-10-05] MEDS: LEVOTHYROXINE 150MCG TABLET (0.15MG) PO SCH (05:41)
[2020-10-05 06:00] VITALS: BP 117/60
[2020-10-05] MEDS: PRENATAL VITAMINS CHEWABLE TABLET PO SCH (09:00)
[2020-10-05] MEDS: OLANZapine 2.5MG TABLET PO SCH ×2 (09:00→21:00)
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
[2020-10-05 16:33] VITALS: BP 117/58
[2020-10-06] MEDS: LEVOTHYROXINE 150MCG TABLET (0.15MG) PO SCH (06:00)
[2020-10-06 07:26] VITALS: BP 112/54
[2020-10-06] MEDS: OLANZapine 2.5MG TABLET PO SCH ×2 (09:00→21:00)
[2020-10-06] MEDS: PRENATAL VITAMINS CHEWABLE TABLET PO SCH (09:00)
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
[2020-10-06 16:15] VITALS: BP 122/69
[2020-10-07] MEDS: LEVOTHYROXINE 150MCG TABLET (0.15MG) PO SCH (05:51)
[2020-10-07 06:17] VITALS: BP 104/56
[2020-10-07] MEDS: PRENATAL VITAMINS CHEWABLE TABLET PO SCH (09:00)
[2020-10-07] MEDS: OLANZapine 2.5MG TABLET PO SCH ×2 (09:00→20:06)
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
[2020-10-07 21:50] VITALS: BP 130/73
[2020-10-08] MEDS: LEVOTHYROXINE 150MCG TABLET (0.15MG) PO SCH (05:32)
[2020-10-08 06:43] VITALS: BP 110/54
[2020-10-08] MEDS: PRENATAL VITAMINS CHEWABLE TABLET PO SCH (08:20)
[2020-10-08] MEDS: OLANZapine 2.5MG TABLET PO SCH ×2 (08:20→20:07)
[2020-10-08 17:38] VITALS: BP 144/77
[2020-10-09] MEDS: LEVOTHYROXINE 150MCG TABLET (0.15MG) PO SCH (05:56)
[2020-10-09 06:00] VITALS: BP 114/60
[2020-10-09] MEDS: OLANZapine 2.5MG TABLET PO SCH ×2 (08:58→21:00)
[2020-10-09] MEDS: PRENATAL VITAMINS CHEWABLE TABLET PO SCH (08:58)
[2020-10-09 18:08] VITALS: BP 124/64
[2020-10-10] MEDS: LEVOTHYROXINE 150MCG TABLET (0.15MG) PO SCH (05:58)
[2020-10-10 06:30] VITALS: BP 125/63
[2020-10-10] MEDS: PRENATAL VITAMINS CHEWABLE TABLET PO SCH (08:19)
[2020-10-10] MEDS: OLANZapine 2.5MG TABLET PO SCH ×2 (08:19→21:00)
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
[2020-10-10 16:11] VITALS: BP 117/70
[2020-10-11] MEDS: LEVOTHYROXINE 150MCG TABLET (0.15MG) PO SCH (06:00)
[2020-10-11 07:15] VITALS: BP 114/66
[2020-10-11] MEDS: OLANZapine 2.5MG TABLET PO SCH ×2 (08:26→21:00)
[2020-10-11] MEDS: PRENATAL VITAMINS CHEWABLE TABLET PO SCH (08:26)
[2020-10-11 16:14] VITALS: BP 118/67
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
[2020-10-11] MEDS ORDERED: PRENCHW PO (16:55)
[2020-10-12] MEDS: LEVOTHYROXINE 150MCG TABLET (0.15MG) PO SCH (05:51)
[2020-10-12 06:51] VITALS: BP 126/64
[2020-10-12] MEDS: OLANZapine 2.5MG TABLET PO SCH (08:15)
[2020-10-12] MEDS: PRENATAL VITAMINS CHEWABLE TABLET PO SCH (08:15)
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
== END 2020-10-12 13:30 | disposition home or self-care (01) | DRG 833 ==
LOC: M ED 16:09 → M ED INP 09-29 14:23 → M PSY 09-29 17:16
PROVIDERS: ADMIT Psychiatry & Neurology Psychiatry; ATTEND Psychiatry & Neurology Psychiatry
DX: O99.341 Other mental disorders complicating pregnancy, first trimester (principal); F29 Unspecified psychosis not due to a substance or known physiological condition; O99.331 Smoking (tobacco) complicating pregnancy, first trimester; F17.290 Nicotine dependence, other tobacco product, uncomplicated; Z3A.08 8 weeks gestation of pregnancy; Z87.820 Personal history of traumatic brain injury; Z20.822 Contact with and (suspected) exposure to COVID-19; Z79.890 Hormone replacement therapy; Z91.14 Patient's other noncompliance with medication regimen

== ENCOUNTER → 2021-01-18 | Outpatient (REF) | payer OTHER ==
[~2021-01-18] MED LIST changes: +PRENCHW PO
[2021-01-18 18:05] LABS: HEMATOCRIT 36.6 % (36.0-47.0); HEMOGLOBIN 12.3 g/dl (12.0-15.5); MEAN CORPUSCULAR HEMOGLOBIN 34.2 pg (27.0-33.0); MEAN CORPUSCULAR HGB CONC 33.6 g/dl (32.0-36.5); MEAN CORPUSCULAR VOLUME 101.7 fl (80.0-96.0); PLATELET COUNT, AUTOMATED 248 10^3/uL (150-450); WHITE BLOOD COUNT 10.4 10^3/uL (4.0-10.0)
[2021-01-18 19:09] LABS: HCG, SERUM QUANTITATIVE 7599 MIU/ML; HEPATITIS B SURFACE ANTIGEN NEGATIVE (NEGATIVE)
[2021-01-18 19:25] LABS: HIV 1&2 SCREEN CENTAUR NEGATIVE (NEGATIVE)
== END ==
LOC: M LAB REF 17:18
PROVIDERS: ATTEND Obstetrics & Gynecology
DX: O36.80X0 Pregnancy with inconclusive fetal viability, not applicable or unspecified (principal); Z32.01 Encounter for pregnancy test, result positive; Z3A.00 Weeks of gestation of pregnancy not specified

== ENCOUNTER → 2021-02-22 | Outpatient (CLI) | payer OTHER ==
[2021-02-22 14:15] LABS: HEMOGLOBIN 11.8 g/dl (12.0-15.5); MEAN CORPUSCULAR HEMOGLOBIN 33.1 pg (27.0-33.0); MEAN CORPUSCULAR HGB CONC 33.7 g/dl (32.0-36.5); PLATELET COUNT, AUTOMATED 272 10^3/uL (150-450); RED BLOOD COUNT 3.57 10^6/uL (4.00-5.40); WHITE BLOOD COUNT 12.3 10^3/uL (4.0-10.0)
[2021-02-22 14:48] LABS: FREE T4 1.03 NG/DL (0.76-1.46); THYROID STIMULATING HORMONE 1.6 uIU/ML (0.358-3.740)
== END ==
LOC: M LAB 11:26
PROVIDERS: ATTEND Advanced Practice Midwife
DX: Z34.03 Encounter for supervision of normal first pregnancy, third trimester (principal); Z36.89 Encounter for other specified antenatal screening

== ENCOUNTER → 2021-03-19 | Outpatient (CLI) | payer OTHER ==
[2021-03-19 16:23] LABS: HEMATOCRIT 35.2 % (36.0-47.0); HEMOGLOBIN 11.9 g/dl (12.0-15.5); MEAN CORPUSCULAR HGB CONC 33.8 g/dl (32.0-36.5); MEAN CORPUSCULAR VOLUME 94.6 fl (80.0-96.0); PLATELET COUNT, AUTOMATED 262 10^3/uL (150-450); RED BLOOD COUNT 3.72 10^6/uL (4.00-5.40); WHITE BLOOD COUNT 13.5 10^3/uL (4.0-10.0)
[2021-03-19 16:54] LABS: ALT/SGPT 24 U/L (12-78); BILIRUBIN,TOTAL 0.1 MG/DL (0.2-1.0); CREATININE FOR GFR 0.66 MG/DL (0.55-1.30); GLOMERULAR FILTRATION RATE > 60.0 (>60); LDH LACTATE DEHYDROGENASE 215 U/L (84-246); URIC ACID 3.7 MG/DL (2.6-6.0)
[2021-03-19 19:25] LABS: CREATININE 24 HOUR, URINE 681.4 MG/24HR (600-1800); CREATININE, URINE 41.3 MG/DL; TOTAL PROTEIN 24 HOUR URINE 123.7 MG/24HR (50-150); URINE TOTAL PROTEIN 7.5 MG/DL (0-12)
== END ==
LOC: M LAB 15:59
PROVIDERS: ATTEND Advanced Practice Midwife
DX: Z34.03 Encounter for supervision of normal first pregnancy, third trimester (principal); Z36.89 Encounter for other specified antenatal screening

== ENCOUNTER → 2021-03-29 | Outpatient (REF) | payer OTHER | LOC: M LAB REF 12:12 | PROVIDERS: ATTEND Advanced Practice Midwife | DX: Z34.03 Encounter for supervision of normal first pregnancy, third trimester (principal) ==

== ENCOUNTER 2021-04-20 05:51 | Outpatient (CLI) | payer OTHER ==
[~2021-04-20] VITALS: Ht 170.2 cm; Wt 107.2 kg
[2021-04-20 06:33] VITALS: BP 137/88
[2021-04-20 08:02] VITALS: BP 181/113
[2021-04-20 08:19] VITALS: BP 135/68
[2021-04-20 09:07] VITALS: BP 134/77
[2021-04-20 09:16] VITALS: BP 129/67
== END 2021-04-20 09:54 | disposition home or self-care (01) ==
LOC: M LDO 05:51
PROVIDERS: ATTEND Advanced Practice Midwife
DX: O26.899 Other specified pregnancy related conditions, unspecified trimester (principal); N89.8 Other specified noninflammatory disorders of vagina; Z3A.00 Weeks of gestation of pregnancy not specified

== ENCOUNTER 2021-04-20 11:30 | Inpatient (IN) | payer OTHER ==
[~2021-04-20] VITALS: Ht 170.2 cm; Wt 106.5 kg
[2021-04-20] VITALS (37 sets, daily range): BP systolic 114–181; BP diastolic 56–96
[2021-04-20] MEDS ORDERED: LACTATED RINGER'S 1000 ML IV STA (11:36)
[2021-04-20] MEDS ORDERED: TRANEXAMIC ACID INJection 1,000 MG in NS 100 ML IV PRN (11:40)
[2021-04-20] MEDS ORDERED: CARBOPROST TROMETHAMINE 250 MCG/ML AMP IM PRN (11:40)
[2021-04-20] MEDS ORDERED: METHYLERGONOVINE MALEATE 0.2 MG/ML VIAL (J2210) IM PRN (11:40)
[2021-04-20 12:53] LABS: HEMATOCRIT 32.7 % (36.0-47.0); HEMOGLOBIN 10.8 g/dl (12.0-15.5); MEAN CORPUSCULAR HEMOGLOBIN 30.7 pg (27.0-33.0); MEAN CORPUSCULAR VOLUME 92.9 fl (80.0-96.0); PLATELET COUNT, AUTOMATED 237 10^3/uL (150-450); RED BLOOD COUNT 3.52 10^6/uL (4.00-5.40)
[2021-04-20] MEDS ORDERED: HOME MED LIST COMPLETE! XX SCH (13:45)
[2021-04-20] MEDS ORDERED: FENTANYL 2MCG/ML ROPIVACAINE 0.2% IN 0.9% NACL 100ML IVBAG As Ordered ONE (13:55)
[2021-04-20] MEDS ORDERED: NALOXONE INJ 0.4MG/1ML VIAL (J2310 PER 1MG) IV PRN (14:05)
[2021-04-20] MEDS ORDERED: ePHEDrine SULFATE 25 MG/5 ML(5MG/ML) SYRINGE IV PRN (14:05)
[2021-04-20] MEDS ORDERED: REFRIGERATOR IV KEYS XX PRN (14:05)
[2021-04-20] MEDS ORDERED: EPIDURAL COMMENT XX SCH (14:05)
[2021-04-20] MEDS ORDERED: LACTATED RINGER'S 1000 ML IV PRN (14:05)
[2021-04-20] MEDS ORDERED: EPIDURAL/PCA KEYS XX PRN (14:05)
[2021-04-20] MEDS ORDERED: diphenhydrAMINE 50MG/ML VIAL (J1200) IV PRN (14:05)
[2021-04-20] MEDS ORDERED: ONDANSETRON 4MG/2ML VIAL IV PRN (14:05)
[2021-04-20] MEDS ORDERED: FENTANYL/ROPIVACAINE/NACL BAG 100 ML EPIDURAL SCH (14:05)
[2021-04-20] MEDS ORDERED: OXYTOCIN DRIP 30 UNITS in IV 1 EA IV PRN ×4 (16:25)
[2021-04-20] MEDS ORDERED: OXYTOCIN DRIP 30 UNITS in IV 1 EA IV SCH (17:00)
[2021-04-20] MEDS ORDERED: RHOGAM 300 MCG (1500 IU) INJ (J2790) IM SCH (18:30)
[2021-04-20] MEDS ORDERED: METHYLERGONOVINE MALEATE 0.2 MG TAB PO PRN (18:30)
[2021-04-20] MEDS ORDERED: DOCUSATE SODIUM 100MG CAPSULE PO PRN (18:30)
[2021-04-20] MEDS ORDERED: MEASLES,MUMPS,RUBELLA VACCINE INJ (MMR-II) (90707) SC SCH (18:30)
[2021-04-20] MEDS ORDERED: ACETAMINOPHEN 500 MG TAB PO PRN (18:30)
[2021-04-20] MEDS ORDERED: DIBUCAINE 1% OINTMENT 30GM TOP PRN (18:30)
[2021-04-21] MEDS: IBUPROFEN 600MG TAB PO PRN ×2 (02:04→15:03)
[2021-04-21] MEDS: LEVOTHYROXINE 150MCG TABLET (0.15MG) PO SCH (06:26)
[2021-04-21 06:37] VITALS: BP 134/75
[2021-04-21] MEDS: PRENATAL VITAMINS CHEWABLE TABLET PO SCH (08:43)
[2021-04-21 18:00] VITALS: BP 143/85
[2021-04-22] MEDS: IBUPROFEN 600MG TAB PO PRN ×2 (01:50→21:26)
[2021-04-22] MEDS: LEVOTHYROXINE 150MCG TABLET (0.15MG) PO SCH (05:34)
[2021-04-22 06:00] VITALS: BP 144/74
[2021-04-22] MEDS: PRENATAL VITAMINS CHEWABLE TABLET PO SCH (09:30)
[2021-04-22 11:48] VITALS: BP 156/64
[2021-04-22 12:28] LABS: HEMATOCRIT 34.4 % (36.0-47.0); HEMOGLOBIN 10.9 g/dl (12.0-15.5); MEAN CORPUSCULAR HEMOGLOBIN 30.1 pg (27.0-33.0); MEAN CORPUSCULAR HGB CONC 31.7 g/dl (32.0-36.5); PLATELET COUNT, AUTOMATED 258 10^3/uL (150-450); RED BLOOD COUNT 3.62 10^6/uL (4.00-5.40); WHITE BLOOD COUNT 14.4 10^3/uL (4.0-10.0)
[2021-04-22 12:44] LABS: CREATININE,RANDOM URINE 71.9 MG/DL; TOTAL PROTEIN,RANDOM URINE 20.4 MG/DL (0.0-12.0)
[2021-04-22 12:50] LABS: ALBUMIN 2.3 GM/DL (3.2-5.2); ALT/SGPT 17 U/L (12-78); BILIRUBIN,TOTAL 0.1 MG/DL (0.2-1.0); BLOOD UREA NITROGEN 10 MG/DL (7-18); CALCIUM LEVEL 8.7 MG/DL (8.5-10.1); CARBON DIOXIDE LEVEL 27 MEQ/L (21-32); CHLORIDE LEVEL 111 MEQ/L (98-107); CREATININE FOR GFR 0.58 MG/DL (0.55-1.30); GLOMERULAR FILTRATION RATE > 60.0 (>60); GLUCOSE, FASTING 96 MG/DL (70-100); LDH LACTATE DEHYDROGENASE 189 U/L (84-246); POTASSIUM SERUM 4.6 MEQ/L (3.5-5.1); SODIUM LEVEL 143 MEQ/L (136-145); TOTAL PROTEIN 5.7 GM/DL (6.4-8.2); URIC ACID 4.3 MG/DL (2.6-6.0)
[2021-04-22 17:57] VITALS: BP 137/72
[2021-04-23 06:00] VITALS: BP 136/80
[2021-04-23] MEDS: LEVOTHYROXINE 150MCG TABLET (0.15MG) PO SCH (06:00)
[2021-04-23] MEDS: PRENATAL VITAMINS CHEWABLE TABLET PO SCH (09:50)
[2021-04-23 10:36] VITALS: BP 139/85
== END 2021-04-23 14:55 | disposition home or self-care (01) | DRG 560 ==
LOC: M LDI 11:30 → M OBS 21:51
PROVIDERS: ADMIT Obstetrics & Gynecology; ATTEND Obstetrics & Gynecology
PROC: 10E0XZZ Delivery of Products of Conception, External Approach (ICD-10-PCS; principal; 2021-04-20)
PROC: 0HQ9XZZ Repair Perineum Skin, External Approach (ICD-10-PCS; 2021-04-20)
DX: O99.284 Endocrine, nutritional and metabolic diseases complicating childbirth (principal); E03.9 Hypothyroidism, unspecified; Z3A.38 38 weeks gestation of pregnancy; Z37.0 Single live birth; O70.0 First degree perineal laceration during delivery; O13.5 Gestational [pregnancy-induced] hypertension without significant proteinuria, complicating the puerperium

== ENCOUNTER 2021-04-29 07:05 | Emergency (ER) | payer OTHER ==
[~2021-04-29] VITALS: Ht 167.6 cm; Wt 99.8 kg
[2021-04-29] MEDS ORDERED: NS 1,000 ML IV ONE (07:30)
[2021-04-29] MEDS ORDERED: ACETAMINOPHEN 500 MG TAB PO ONE (07:30)
[2021-04-29 08:19] LABS: BASO # 0.1 10^3/uL (0.0-0.2); BASO % 0.4 % (0.0-1.0); EOS # 0.1 10^3/uL (0.0-0.5); EOS % 1.1 % (0.0-3.0); HEMATOCRIT 40.4 % (36.0-47.0); LYMPH # 0.4 10^3/uL (1.5-5.0); LYMPH % 3.1 % (24.0-44.0); MEAN CORPUSCULAR HGB CONC 32.2 g/dl (32.0-36.5); MEAN CORPUSCULAR VOLUME 93.3 fl (80.0-96.0); MONO # 0.7 10^3/uL (0.0-0.8); NEUTROPHILS # 10.1 10^3/uL (1.5-8.5); NEUTROPHILS % 88.6 % (36.0-66.0); PLATELET COUNT, AUTOMATED 426 10^3/uL (150-450); RED BLOOD COUNT 4.33 10^6/uL (4.00-5.40); WHITE BLOOD COUNT 11.4 10^3/uL (4.0-10.0)
[2021-04-29 08:29] LABS: RSV AMPLIFICATION NEGATIVE (NEGATIVE)
[2021-04-29 08:38] LABS: ALBUMIN 2.9 GM/DL (3.2-5.2); ALT/SGPT 33 U/L (12-78); BILIRUBIN,DIRECT < 0.1 MG/DL (0.0-0.2); BILIRUBIN,TOTAL 0.2 MG/DL (0.2-1.0); BLOOD UREA NITROGEN 19 MG/DL (7-18); CARBON DIOXIDE LEVEL 24 MEQ/L (21-32); CHLORIDE LEVEL 112 MEQ/L (98-107); CREATININE FOR GFR 0.74 MG/DL (0.55-1.30); GLOMERULAR FILTRATION RATE > 60.0 (>60); GLUCOSE, FASTING 119 MG/DL (70-100); LIPASE 72 U/L (73-393); POTASSIUM SERUM 4.3 MEQ/L (3.5-5.1); SODIUM LEVEL 143 MEQ/L (136-145); TOTAL PROTEIN 6.6 GM/DL (6.4-8.2)
[2021-04-29] MEDS ORDERED: ISOVUE-370 76% 100ML VIAL As Ordered ONE (08:42)
[2021-04-29 09:18] VITALS: BP 127/71
== END 2021-04-29 09:25 | disposition home or self-care (01) ==
LOC: M ED 07:05
DX: R50.9 Fever, unspecified (principal); R10.9 Unspecified abdominal pain; E03.9 Hypothyroidism, unspecified; Z79.890 Hormone replacement therapy
CPT/HCPCS: 74177; 80048; 80076; 83690; 85025; 87631; 96360; 99284; Q9967

== ENCOUNTER → 2022-12-11 | Outpatient (CLI) | payer OTHER ==
[2022-12-11 14:14] LABS: ALBUMIN 4.1 G/DL (3.2-5.2); ALKALINE PHOSPHATASE 129 U/L (46-116); ALT/SGPT 218 U/L (7.0-40); AST/SGOT 94 U/L (<34); BILIRUBIN,TOTAL 0.6 MG/DL (0.3-1.2); BLOOD UREA NITROGEN 10 MG/DL (9-23); CALCIUM LEVEL 10.3 MG/DL (8.5-10.1); CARBON DIOXIDE LEVEL 31 MMOL/L (20-31); CHLORIDE LEVEL 100 MMOL/L (98-107); CHOLESTEROL LEVEL 175 MG/DL (<200); CHOLESTEROL RISK RATIO 4.83 (<5); GLOMERULAR FILTRATION RATE > 60.0 (>60); GLUCOSE, FASTING 96 MG/DL (60-100); HDL CHOLESTEROL 36.2 MG/DL (>40); LDL CHOLESTEROL 102.8 MG/DL (<100); NON-HDL-C 138.8 MG/DL; POTASSIUM SERUM 4.9 MMOL/L (3.5-5.1); SODIUM LEVEL 137 MMOL/L (136-145); TOTAL PROTEIN 7.8 G/DL (5.7-8.2); TRIGLYCERIDES LEVEL 180 MG/DL (<150)
== END ==
LOC: M LAB 12:41
PROVIDERS: ATTEND Nurse Practitioner Adult Health
DX: E03.9 Hypothyroidism, unspecified (principal); F41.9 Anxiety disorder, unspecified

== ENCOUNTER → 2022-12-20 | Outpatient (CLI) | payer OTHER ==
[2022-12-20 13:58] LABS: HEPATITIS B CORE ANTIBODY IGM NEGATIVE (NEGATIVE); HEPATITIS C VIRUS ABY INDEX 0.12 INDEX (<0.8)
== END ==
LOC: M RAD 12:15
PROVIDERS: ATTEND Nurse Practitioner Adult Health
DX: R94.5 Abnormal results of liver function studies (principal); K76.0 Fatty (change of) liver, not elsewhere classified

== ENCOUNTER → 2024-03-20 | Outpatient (CLI) | payer OTHER | LOC: M RAD 11:13 | DX: K76.0 Fatty (change of) liver, not elsewhere classified (principal) ==

== ENCOUNTER → 2025-03-27 | Outpatient (CLI) | payer OTHER ==
[2025-03-27 14:44] LABS: PLATELET COUNT, AUTOMATED 324 10^3/uL (150-450)
[2025-03-27 15:00] LABS: ESTIMATED AVERAGE GLUCOSE 171.0 MG/DL (60-110)
[2025-03-27 15:06] LABS: ALT/SGPT 156 U/L (7.0-40); AST/SGOT 57 U/L (<34); CALCIUM LEVEL 9.5 MG/DL (8.5-10.1); CARBON DIOXIDE LEVEL 28 MMOL/L (20-31); CHLORIDE LEVEL 106 MMOL/L (98-107); CHOLESTEROL LEVEL 210 MG/DL (<200); CHOLESTEROL RISK RATIO 6.06 (<5); CREATININE FOR GFR 0.84 MG/DL (0.55-1.30); GLOMERULAR FILTRATION RATE > 90.0 (>60); LDL CHOLESTEROL 146.6 MG/DL (<100); NON-HDL-C 175.4 MG/DL; POTASSIUM SERUM 4.5 MMOL/L (3.5-5.1); SODIUM LEVEL 141 MMOL/L (136-145); TRIGLYCERIDES LEVEL 144 MG/DL (<150)
[2025-03-27 15:07] LABS: FREE T4 0.59 NG/DL (0.89-1.76)
[2025-03-27 15:08] LABS: TOTAL 25(OH) VITAMIN D 32.8 NG/ML (20.0-100.0)
== END ==
LOC: M LAB 13:43
DX: E78.5 Hyperlipidemia, unspecified (principal); E11.9 Type 2 diabetes mellitus without complications; K76.0 Fatty (change of) liver, not elsewhere classified